=== PATIENT | female | born 1950 | race Caucasian/White ===

== ENCOUNTER 2018-01-22 21:37 | Inpatient (IN) | payer MEDICAID, OTHER ==
[~2018-01-22] VITALS: Ht 162.6 cm; Wt 52.7 kg
[2018-01-22 21:56] LABS: BASO % 0 % (0-3); EOS # 0.4 x10^3/uL (0.0-0.7); EOS % 4 % (0-3); HEMATOCRIT 32.1 % (36.0-47.0); HEMOGLOBIN 10.9 g/dL (12.0-15.5); LYMPH # 1.2 x10^3/uL (1.0-4.8); LYMPH % 14 % (24-48); MEAN CORPUSCULAR HEMOGLOBIN 28 pg (25-35); MEAN CORPUSCULAR HGB CONC 34 g/dL (31-37); MEAN CORPUSCULAR VOLUME 84 fL (79-100); MONO # 0.5 x10^3/uL (0.0-1.1); MONO % 6 % (0-9); NEUT # 6.6 x10^3uL (1.8-7.7); NEUT % 75 % (31-73); PLATELET COUNT 294 x10^3/uL (140-400); RED BLOOD COUNT 3.84 x10^6/uL (3.50-5.40); RED CELL DISTRIBUTION WIDTH 15.3 % (11.5-14.5); WHITE BLOOD COUNT 8.8 x10^3/uL (4.0-11.0)
--- NOTE | 2018-01-22 21:57 | PHYS DOC ---
Adult General Chief Complaint Chief Complaint: MECHANICAL FALL HPI HPI Patient is a 67 year old female with a history of hypertension, anxiety, who presents from the local halfway, per report patient has right hip fracture. Patient fell yesterday and they did x-rays today which were positive for fracture. Patient states she is wheelchair-bound. Patient denies any loss of consciousness when she fell. Review of Systems Review of Systems Constitutional: Denies fever or chills [] Eyes: Denies change in visual acuity, redness, or eye pain [] HENT: Denies nasal congestion or sore throat [] Respiratory: Denies cough or shortness of breath [] Cardiovascular: No additional information not addressed in HPI [] GI: Denies abdominal pain, nausea, vomiting, bloody stools or diarrhea [] : Denies dysuria or hematuria [] Musculoskeletal: Reports right hip fracture Integument: Denies rash or skin lesions [] Neurologic: Denies headache, focal weakness or sensory changes [] All other systems were reviewed and found to be within normal limits, except as documented in this note. Current Medications Current Medications Allergies Allergies Allergies Coded Allergies Type Severity Reaction Last Updated Verified No Known Drug Allergies 01/22/18 No Physical Exam Physical Exam Constitutional: Well developed, well nourished, no acute distress, non-toxic appearance. [] HENT: Normocephalic, atraumatic, bilateral external ears normal, oropharynx moist, no oral exudates, nose normal. [] Eyes: PERRLA, EOMI, conjunctiva normal, no discharge. [] Neck: Normal range of motion, no tenderness, supple, no stridor. [] Cardiovascular:Heart rate regular rhythm, no murmur [] Lungs & Thorax: Bilateral breath sounds clear to auscultation [] Abdomen: Bowel sounds normal, soft, no tenderness, no masses, no pulsatile masses. [] Skin: Warm, dry, no erythema, no rash. [] Back: No tenderness, no CVA tenderness. [] Extremities: Slight tenderness on palpation of the right lateral hip, limited passive range of motion to the right hip, pain elicited on external and internal rotation of the right hip, no cyanosis, no clubbing, ROM intact, +2 bilateral pedal pulses. Neurologic: Alert and oriented X 3, normal motor function, normal sensory function, no focal deficits noted. [] Psychologic: Affect normal, judgement normal, mood normal. [] Current Patient Data Vital Signs Vital Signs Date Time Temp Pulse Resp B/P (MAP) Pulse Ox O2 Delivery O2 Flow Rate FiO2 01/22/18 21:37 98.2 57 18 164/77 (106) 95 Room Air 98.2 Lab Values Laboratory Tests Test 01/22/18 21:43 White Blood Count 8.8 x10^3/uL (4.0-11.0) Red Blood Count 3.84 x10^6/uL (3.50-5.40) Hemoglobin 10.9 g/dL (12.0-15.5) L Hematocrit 32.1 % (36.0-47.0) L Mean Corpuscular Volume 84 fL (79-100) Mean Corpuscular Hemoglobin 28 pg (25-35) Mean Corpuscular Hemoglobin Concent 34 g/dL (31-37) Red Cell Distribution Width 15.3 % (11.5-14.5) H Platelet Count 294 x10^3/uL (140-400) Neutrophils (%) (Auto) 75 % (31-73) H Lymphocytes (%) (Auto) 14 % (24-48) L Monocytes (%) (Auto) 6 % (0-9) Eosinophils (%) (Auto) 4 % (0-3) H Basophils (%) (Auto) 0 % (0-3) Neutrophils # (Auto) 6.6 x10^3uL (1.8-7.7) Lymphocytes # (Auto) 1.2 x10^3/uL (1.0-4.8) Monocytes # (Auto) 0.5 x10^3/uL (0.0-1.1) Eosinophils # (Auto) 0.4 x10^3/uL (0.0-0.7) Basophils # (Auto) 0.0 x10^3/uL (0.0-0.2) Prothrombin Time 14.5 SEC (11.7-14.0) H Prothrombin Time INR 1.2 (0.8-1.1) H PTT 37 SEC (24-38) Sodium Level 137 mmol/L (136-145) Potassium Level 3.1 mmol/L (3.5-5.1) L Chloride Level 102 mmol/L (98-107) Carbon Dioxide Level 26 mmol/L (21-32) Anion Gap 9 (6-14) Blood Urea Nitrogen 12 mg/dL (7-20) Creatinine 0.8 mg/dL (0.6-1.0) Estimated GFR (Cockcroft-Gault) 71.8 BUN/Creatinine Ratio 15 (6-20) Glucose Level 120 mg/dL (70-99) H Calcium Level 9.0 mg/dL (8.5-10.1) Total Bilirubin 0.9 mg/dL (0.2-1.0) Aspartate Amino Transferase (AST) 13 U/L (15-37) L Alanine Aminotransferase (ALT) 16 U/L (14-59) Alkaline Phosphatase 83 U/L (46-116) Total Protein 7.2 g/dL (6.4-8.2) Albumin 3.4 g/dL (3.4-5.0) Albumin/Globulin Ratio 0.9 (1.0-1.7) L Laboratory Tests 01/22/18 21:43 Laboratory Tests 01/22/18 21:43 EKG EKG [] Radiology/Procedures Radiology/Procedures [] Course & Med Decision Making Course & Med Decision Making Pertinent Labs and Imaging studies reviewed. (See chart for details) This is a 67-year-old female patient presenting from the halfway, per halfway report patient fell and has a broken hip. Looking at the x-ray results that patient came with it shows patient has an acute appearing mildly displaced right anterior pelvic parasymphyseal fracture. 22:18 Consulted with Elenita PRADHAN for Dr. Marianela Beyer 22:[address] Aguilera who accepted patient for admission. Dragon Disclaimer Dragon Disclaimer This electronic medical record was generated, in whole or in part, using a voice recognition dictation system. Departure Departure Impression: Primary Impression: Pelvis fracture, right Additional Impression: Fall Disposition: ADMITTED INPATIENT Condition: STABLE Attending Signature Attending Signature I have reviewed the PA/DELINQUENT ACCOUNT CLERK's note and plan of care. I was available for consultation as needed during the patient's visit in the emergency department. I agree with the clinical impression, plan, and disposition. Problem Qualifiers Primary Impression: Pelvis fracture, right Encounter type: initial encounter Pelvic bone location: pubis Sublocation of pubis: unspecified portion of pubis Fracture type: closed Qualified Codes : S32.501A - Unspecified fracture of right pubis, initial encounter for closed fracture Additional Impression: Fall Encounter type: initial encounter Qualified Codes: W19.XXXA - Unspecified fall, initial encounter BORIS CARMONA APRN Jan 22, 2018 21:57 FRIDA CASPER DO Jan 24, 2018 03:24
[2018-01-22 22:03] LABS: PROTHROMBIN TIME PATIENT 14.5 SEC (11.7-14.0)
[2018-01-22 22:05] LABS: CREATININE 0.8 mg/dL (0.6-1.0); GFR 71.8; POTASSIUM 3.1 mmol/L (3.5-5.1)
[2018-01-22 22:11] LABS: ALBUMIN 3.4 g/dL (3.4-5.0); ALBUMIN/GLOBULIN RATIO 0.9 (1.0-1.7); TOTAL BILIRUBIN 0.9 mg/dL (0.2-1.0); TOTAL PROTEIN 7.2 g/dL (6.4-8.2)
[2018-01-22] MEDS ORDERED: ONDANSETRON PF 4 MG/2 ML VIAL. IV PRN (22:30)
--- NOTE | 2018-01-22 22:37 | RAD ---
Indication:pre op, short of breath TECHNIQUE:Portable AP chest X-ray COMPARISON:None FINDINGS: Heart is moderately enlarged in size. Lungs are clear. No pneumothorax or pleural effusion. Visualized bony thorax within normal limits. IMPRESSION: Moderate cardiomegaly. Electronically signed by: Nguyễn Munoz DO (01/22/2018 10:34 PM) [facility]
--- NOTE | 2018-01-22 22:40 | RAD ---
Indication: Mechanical fall and pelvis TECHNIQUE: Single AP view of the pelvis and frog-leg view of the right hip joint COMPARISON: None FINDINGS: There is mildly displaced fracture of the medial right superior and inferior pubic rami seen. The bilateral hip joints are intact. SI joints within normal limits. IMPRESSION: Fracture of the right superior and inferior pubic rami. Electronically signed by: Nguyễn Munoz DO (01/22/2018 10:37 PM) [facility]
[2018-01-22 22:56] LABS: BILIRUBIN,URINE NEGATIVE (NEG); CLARITY,URINE CLEAR; COLOR,URINE YELLOW; NITRITE,URINE POSITIVE (NEG); PROTEIN,URINE NEGATIVE (NEG-TRACE); UROBILINOGEN,URINE 0.2 mg/dL (0.2 mg/dL)
[2018-01-22] MEDS: MORPHINE SULFATE 4 MG/ML VIAL. IV PRN (22:57)
[2018-01-22] MEDS ORDERED: POTASSIUM CHLORIDE 20 MEQ TABLET.ER. PO ONE (23:00)
[2018-01-22] MEDS ORDERED: IV NORMAL SALINE 1000ML BAG 1,000 ML IV ONE (23:00)
[2018-01-22 23:05] LABS: BACTERIA,URINE MANY /HPF (0-FEW); RBC,URINE 0 /HPF (0-2); SQUAMOUS EPITHELIAL CELL,UR FEW /LPF
[2018-01-22 23:10] VITALS: BP 143/74
[2018-01-23] MEDS: MORPHINE SULFATE 4 MG/ML VIAL. IV PRN ×3 (01:13→17:36)
[2018-01-23 03:36] VITALS: BP 138/72
[2018-01-23 05:38] LABS: BASO % 1 % (0-3); EOS # 0.3 x10^3/uL (0.0-0.7); EOS % 5 % (0-3); HEMATOCRIT 28.6 % (36.0-47.0); HEMOGLOBIN 9.6 g/dL (12.0-15.5); LYMPH # 1.3 x10^3/uL (1.0-4.8); LYMPH % 19 % (24-48); MEAN CORPUSCULAR HEMOGLOBIN 28 pg (25-35); MEAN CORPUSCULAR HGB CONC 34 g/dL (31-37); MEAN CORPUSCULAR VOLUME 84 fL (79-100); MONO # 0.4 x10^3/uL (0.0-1.1); MONO % 6 % (0-9); NEUT # 4.5 x10^3uL (1.8-7.7); NEUT % 69 % (31-73); PLATELET COUNT 229 x10^3/uL (140-400); RED BLOOD COUNT 3.41 x10^6/uL (3.50-5.40); RED CELL DISTRIBUTION WIDTH 15.7 % (11.5-14.5); WHITE BLOOD COUNT 6.5 x10^3/uL (4.0-11.0)
[2018-01-23 05:50] LABS: CALCIUM 8.6 mg/dL (8.5-10.1); CREATININE 0.8 mg/dL (0.6-1.0); GFR 71.8; POTASSIUM 3.5 mmol/L (3.5-5.1)
[2018-01-23 07:00] VITALS: BP 129/60
[2018-01-23 11:00] VITALS: BP 123/72
--- NOTE | 2018-01-23 12:16 | HP ---
ADMIT DATE: CHIEF COMPLAINT: Mechanical fall. HISTORY OF PRESENT ILLNESS: The patient is a pleasant 67-year-old female who fell. She resides in a snf. She was brought to the ER for intractable pain. X-rays are confirming a right pelvic fracture. I have discussed the case with the ER physician. The patient has intractable pain. We are going to admit her and consult Orthopedics. PAST MEDICAL HISTORY: I guess is benign. ALLERGIES: None. FAMILY HISTORY: Hypertension. SOCIAL HISTORY: She does not drink, smoke or take drugs. MEDICATIONS: Reviewed, please refer to the MRAD. REVIEW OF SYSTEMS: GENERAL: No history of weight change, weakness or fevers. SKIN: No bruising, hair changes or rashes. EYES: No blurred, double or loss of vision. NOSE AND THROAT: No history of nosebleeds, hoarseness or sore throat. HEART: No history of palpitations, chest pain or shortness of breath on exertion. LUNGS: Denies cough, hemoptysis, wheezing or shortness of breath. GASTROINTESTINAL: Denies changes in appetite, nausea, vomiting, diarrhea or constipation. GENITOURINARY: No history of frequency, urgency, hesitancy or nocturia. NEUROLOGIC: Denies history of numbness, tingling, tremor or weakness. PSYCHIATRIC: No history of panic, anxiety or depression. ENDOCRINE: No history of heat or cold intolerance, polyuria or polydipsia. EXTREMITIES: She complains of hip pain. PHYSICAL EXAMINATION: VITAL SIGNS: Temperature afebrile, pulse 92, respirations 18, blood pressure /72. GENERAL: She is alert, cooperative, complaining of right hip pain and pelvic pain. HEART: Normal S1, S2. LUNGS: Clear. ABDOMEN: Soft. EXTREMITIES: No edema. SKIN: No rashes. ENDOCRINE: No thyromegaly. LYMPHATICS: No cervical nodes. HEMATOPOIETIC: No bruising. LABORATORY DATA: White count 8, hemoglobin 11, platelets 294. Electrolytes are normal, although her potassium was low last night at 3.1, is back up to 3.5 this morning after replacement. Urine shows a large amount of leukocyte esterase and 11-20 white cells. ASSESSMENT AND PLAN: Fall with pelvic fracture and incidental finding of hypokalemia and urinary tract infection. The patient has been admitted. We will start IV Levaquin, IV fluids, p.r.n. narcotics. Consult Orthopedics. Continue home medicines, PT, OT. NEEMA RDORIGES DO DR: VITOR/danna JOB#: [id number] / [id number]
--- NOTE | 2018-01-23 12:44 | PDOC2 ---
CONSULT Date of Consult Date of Consult DATE: 01/23/18 TIME: 12:36 Reason for Consult Reason for Consult: Pelvic fracture Identification/Chief Complaint Chief Complaint Right hip pain, difficulty walking Source Source: Chart review, Patient History of Present Illness Reason for Visit: This 67-year-old woman fell in the shower. She has right hip pain and inability to walk. She reports weakness recently, and difficulty with her muscles. She was at a rehabilitation facility trying to get stronger. She reports that her nerves and muscles "gave out" 1 month ago. Past Medical History Cardiovascular: HTN, Other (cardiomegaly) Current Problem List Problem List Problems Medical Problems: (1) Fall Status: Acute (2) Pelvis fracture, right Status: Acute Current Medications Current Medications Current Medications Ondansetron HCl (Zofran) 4 mg PRN Q8HRS PRN IV NAUSEA/VOMITING 1ST CHOICE Last administered on 01/22/18at 22:57; Start 01/22/18 at 22:30; Stop 01/23/18 at 22:29 Morphine Sulfate (Morphine Sulfate) 4 mg PRN Q2HR PRN IV SEVERE PAIN Last administered on 01/23/18at 10:41; Start 01/22/18 at 22:30; Stop 01/23/18 at 22:29 Sodium Chloride 1,000 ml @ 75 mls/hr 1X ONCE IV Last administered on at 22:56; Start 01/22/18 at 23:00; Stop 01/23/18 at 12:19; Status DC Potassium Chloride (Klor-Con) 40 meq 1X ONCE PO Last administered on at 22:57; Start 01/22/18 at 23:00; Stop 01/22/18 at 23:01; Status DC Allergies Allergies: Coded Allergies: No Known Drug Allergies (Unverified , 01/22/18) ROS Neurological: Yes Impaired Coord/balance, Yes Numbness/Tingling, Yes Weakness Physical Exam General: Alert, Cooperative HEENT: Atraumatic Lungs: Normal air movement Heart: Regular rate Abdomen: Soft Extremities: Other (she has a flicker of toe plantar flexion. Absent dorsiflexion. I believe the Achilles is now contracted. Sensation is very poor and the right lower extremity. This is well beyond what could be explained by her fracture.) Skin: No significant lesion Neuro: Normal speech, Other (abnormal sensation and motor function right lower extremity.) MUSCULOSKELETAL: Abnormal exam of right (she has some tenderness in the right groin area consistent with pubic rami fractures.) Vitals VITALS Vital Signs Date Time Temp Pulse Resp B/P (MAP) Pulse Ox O2 Delivery O2 Flow Rate FiO2 01/23/18 11:00 97.9 67 18 123/72 (89) 93 Room Air 97.9 Labs Labs Laboratory Tests Test 01/22/18 21:43 01/22/18 22:45 01/23/18 04:10 White Blood Count 8.8 x10^3/uL (4.0-11.0) 6.5 x10^3/uL (4.0-11.0) Red Blood Count 3.84 x10^6/uL (3.50-5.40) 3.41 x10^6/uL (3.50-5.40) Hemoglobin 10.9 g/dL (12.0-15.5) 9.6 g/dL (12.0-15.5) Hematocrit 32.1 % (36.0-47.0) 28.6 % (36.0-47.0) Mean Corpuscular Volume 84 fL (79-100) 84 fL (79-100) Mean Corpuscular Hemoglobin 28 pg (25-35) 28 pg (25-35) Mean Corpuscular Hemoglobin Concent 34 g/dL (31-37) 34 g/dL (31-37) Red Cell Distribution Width 15.3 % (11.5-14.5) 15.7 % (11.5-14.5) Platelet Count 294 x10^3/uL (140-400) 229 x10^3/uL (140-400) Neutrophils (%) (Auto) 75 % (31-73) 69 % (31-73) Lymphocytes (%) (Auto) 14 % (24-48) 19 % (24-48) Monocytes (%) (Auto) 6 % (0-9) 6 % (0-9) Eosinophils (%) (Auto) 4 % (0-3) 5 % (0-3) Basophils (%) (Auto) 0 % (0-3) 1 % (0-3) Neutrophils # (Auto) 6.6 x10^3uL (1.8-7.7) 4.5 x10^3uL (1.8-7.7) Lymphocytes # (Auto) 1.2 x10^3/uL (1.0-4.8) 1.3 x10^3/uL (1.0-4.8) Monocytes # (Auto) 0.5 x10^3/uL (0.0-1.1) 0.4 x10^3/uL (0.0-1.1) Eosinophils # (Auto) 0.4 x10^3/uL (0.0-0.7) 0.3 x10^3/uL (0.0-0.7) Basophils # (Auto) 0.0 x10^3/uL (0.0-0.2) 0.0 x10^3/uL (0.0-0.2) Prothrombin Time 14.5 SEC (11.7-14.0) Prothromb Time International Ratio 1.2 (0.8-1.1) Activated Partial Thromboplast Time 37 SEC (24-38) Sodium Level 137 mmol/L (136-145) 140 mmol/L (136-145) Potassium Level 3.1 mmol/L (3.5-5.1) 3.5 mmol/L (3.5-5.1) Chloride Level 102 mmol/L (98-107) 106 mmol/L (98-107) Carbon Dioxide Level 26 mmol/L (21-32) 26 mmol/L (21-32) Anion Gap 9 (6-14) 8 (6-14) Blood Urea Nitrogen 12 mg/dL (7-20) 10 mg/dL (7-20) Creatinine 0.8 mg/dL (0.6-1.0) 0.8 mg/dL (0.6-1.0) Estimated GFR (Cockcroft-Gault) 71.8 71.8 BUN/Creatinine Ratio 15 (6-20) Glucose Level 120 mg/dL (70-99) 101 mg/dL (70-99) Calcium Level 9.0 mg/dL (8.5-10.1) 8.6 mg/dL (8.5-10.1) Total Bilirubin 0.9 mg/dL (0.2-1.0) Aspartate Amino Transf (AST/SGOT) 13 U/L (15-37) Alanine Aminotransferase (ALT/SGPT) 16 U/L (14-59) Alkaline Phosphatase 83 U/L (46-116) Total Protein 7.2 g/dL (6.4-8.2) Albumin 3.4 g/dL (3.4-5.0) Albumin/Globulin Ratio 0.9 (1.0-1.7) Urine Collection Type Unknown Urine Color Yellow Urine Clarity Clear Urine pH 6.0 Urine Specific [place] 1.010 Urine Protein Negative mg/dL (NEG-TRACE) Urine Glucose (UA) Negative mg/dL (NEG) Urine Ketones (Stick) Negative mg/dL (NEG) Urine Blood Negative (NEG) Urine Nitrite Positive (NEG) Urine Bilirubin Negative (NEG) Urine Urobilinogen Dipstick 0.2 mg/dL (0.2 mg/dL) Urine Leukocyte Esterase Large (NEG) Urine RBC 0 /HPF (0-2) Urine WBC 11-20 /HPF (0-4) Urine Squamous Epithelial Cells Few /LPF Urine Bacteria Many /HPF (0-FEW) Urine Mucus Slight /LPF Laboratory Tests Test 01/22/18 21:43 01/22/18 22:45 01/23/18 04:10 White Blood Count 8.8 x10^3/uL (4.0-11.0) 6.5 x10^3/uL (4.0-11.0) Red Blood Count 3.84 x10^6/uL (3.50-5.40) 3.41 x10^6/uL (3.50-5.40) Hemoglobin 10.9 g/dL (12.0-15.5) 9.6 g/dL (12.0-15.5) Hematocrit 32.1 % (36.0-47.0) 28.6 % (36.0-47.0) Mean Corpuscular Volume 84 fL (79-100) 84 fL (79-100) Mean Corpuscular Hemoglobin 28 pg (25-35) 28 pg (25-35) Mean Corpuscular Hemoglobin Concent 34 g/dL (31-37) 34 g/dL (31-37) Red Cell Distribution Width 15.3 % (11.5-14.5) 15.7 % (11.5-14.5) Platelet Count 294 x10^3/uL (140-400) 229 x10^3/uL (140-400) Neutrophils (%) (Auto) 75 % (31-73) 69 % (31-73) Lymphocytes (%) (Auto) 14 % (24-48) 19 % (24-48) Monocytes (%) (Auto) 6 % (0-9) 6 % (0-9) Eosinophils (%) (Auto) 4 % (0-3) 5 % (0-3) Basophils (%) (Auto) 0 % (0-3) 1 % (0-3) Neutrophils # (Auto) 6.6 x10^3uL (1.8-7.7) 4.5 x10^3uL (1.8-7.7) Lymphocytes # (Auto) 1.2 x10^3/uL (1.0-4.8) 1.3 x10^3/uL (1.0-4.8) Monocytes # (Auto) 0.5 x10^3/uL (0.0-1.1) 0.4 x10^3/uL (0.0-1.1) Eosinophils # (Auto) 0.4 x10^3/uL (0.0-0.7) 0.3 x10^3/uL (0.0-0.7) Basophils # (Auto) 0.0 x10^3/uL (0.0-0.2) 0.0 x10^3/uL (0.0-0.2) Prothrombin Time 14.5 SEC (11.7-14.0) Prothromb Time International Ratio 1.2 (0.8-1.1) Activated Partial Thromboplast Time 37 SEC (24-38) Sodium Level 137 mmol/L (136-145) 140 mmol/L (136-145) Potassium Level 3.1 mmol/L (3.5-5.1) 3.5 mmol/L (3.5-5.1) Chloride Level 102 mmol/L (98-107) 106 mmol/L (98-107) Carbon Dioxide Level 26 mmol/L (21-32) 26 mmol/L (21-32) Anion Gap 9 (6-14) 8 (6-14) Blood Urea Nitrogen 12 mg/dL (7-20) 10 mg/dL (7-20) Creatinine 0.8 mg/dL (0.6-1.0) 0.8 mg/dL (0.6-1.0) Estimated GFR (Cockcroft-Gault) 71.8 71.8 BUN/Creatinine Ratio 15 (6-20) Glucose Level 120 mg/dL (70-99) 101 mg/dL (70-99) Calcium Level 9.0 mg/dL (8.5-10.1) 8.6 mg/dL (8.5-10.1) Total Bilirubin 0.9 mg/dL (0.2-1.0) Aspartate Amino Transf (AST/SGOT) 13 U/L (15-37) Alanine Aminotransferase (ALT/SGPT) 16 U/L (14-59) Alkaline Phosphatase 83 U/L (46-116) Total Protein 7.2 g/dL (6.4-8.2) Albumin 3.4 g/dL (3.4-5.0) Albumin/Globulin Ratio 0.9 (1.0-1.7) Urine Collection Type Unknown Urine Color Yellow Urine Clarity Clear Urine pH 6.0 Urine Specific [place] 1.010 Urine Protein Negative mg/dL (NEG-TRACE) Urine Glucose (UA) Negative mg/dL (NEG) Urine Ketones (Stick) Negative mg/dL (NEG) Urine Blood Negative (NEG) Urine Nitrite Positive (NEG) Urine Bilirubin Negative (NEG) Urine Urobilinogen Dipstick 0.2 mg/dL (0.2 mg/dL) Urine Leukocyte Esterase Large (NEG) Urine RBC 0 /HPF (0-2) Urine WBC 11-20 /HPF (0-4) Urine Squamous Epithelial Cells Few /LPF Urine Bacteria Many /HPF (0-FEW) Urine Mucus Slight /LPF Images Images Report reviewed, images independently reviewed. Minimally displaced pubic ramus fractures on the right superior and inferior pubic ramus. Cardiomegaly on the chest film. Accession No. : [id number] Patient Name / ID : SANDIE Miller / [id number] Exam Date : 01/22/2018 22:02:44 ( Approved ) Study Comment : Sex / Age : F / 67Y Creator : Dictator : Field Care Coordinator : Saddle And Side Wire Stitcher : NGUYỄN MUNOZ Approver2 : Report Date : 01/22/2018 22:35:00 My Comment : [facility] [address] [place] [address] IMAGING REPORT Signed PATIENT: NATTY HOOPER ACCOUNT: [id number] : 1950 LOCATION: ER AGE: 67 SEX: F EXAM STATUS: REG ER ORD. PHYSICIAN: BORIS CARMONA APRN REASON: fx PROCEDURE: HIP RIGHT 2V WITH PELVIS Indication: Mechanical fall and pelvis TECHNIQUE: Single AP view of the pelvis and frog-leg view of the right hip joint COMPARISON: None FINDINGS: There is mildly displaced fracture of the medial right superior and inferior pubic rami seen. The bilateral hip joints are intact. SI joints within normal limits. IMPRESSION: Fracture of the right superior and inferior pubic rami. Electronically signed by: Nguyễn Munoz DO (01/22/2018 10:37 PM) [facility] DICTATED and SIGNED BY: NGUYỄN MUNOZ DO DATE: 01/22/18 2235 Assessment/Plan Assessment/Plan Closed right superior and inferior pubic ramus fractures. These are minimally displaced and walker for treatment is recommended. She could weight-bear as tolerated based on the fractures. She has a dense weakness in the right lower extremity that is beyond what I can explain by her fractures. I'm suspicious that she has had a stroke, or has some other neurologic pathology. I will ask neurology to be involved. JOSE ANTONIO PASTRANA MD Jan 23, 2018 12:44
[2018-01-23 15:00] VITALS: BP 132/70
[2018-01-23 19:00] VITALS: BP 158/80
[2018-01-23] MEDS: CIPROFLOXACIN HCL 250 MG TABLET. PO SCH (21:29)
[2018-01-23] MEDS: LACTOBACILLUS RHAMNOSUS GG 1 CAPSULE. PO SCH (21:29)
[2018-01-23 23:00] VITALS: BP 162/82
[2018-01-24 03:00] VITALS: BP 177/80
[2018-01-24 07:00] VITALS: BP 179/80
[2018-01-24] MEDS: LACTOBACILLUS RHAMNOSUS GG 1 CAPSULE. PO SCH ×2 (08:11→21:11)
[2018-01-24] MEDS: CIPROFLOXACIN HCL 250 MG TABLET. PO SCH ×2 (08:11→21:11)
[2018-01-24] MEDS: HYDROcodone/APAP 5/325MG 1 TAB TABLET PO PRN ×3 (08:24→21:12)
[2018-01-24 11:00] VITALS: BP 169/78
--- NOTE | 2018-01-24 14:48 | PDOC ---
PROGRESS NOTES Chief Complaint Chief Complaint Fall w/pelvic fx UTI Hypokalemia History of Present Illness History of Present Illness Pt seen and examined Dw RN VSS Pt CO R pelvic pain Vitals Vitals Vital Signs Date Time Temp Pulse Resp B/P (MAP) Pulse Ox O2 Delivery O2 Flow Rate FiO2 01/24/18 11:00 98.1 63 20 169/78 (108) 97 Room Air 98.1 Physical Exam General: Alert, Cooperative, No acute distress Heart: Regular rate, No murmurs Lungs: Clear Abdomen: Normal bowel sounds, Soft Extremities: No clubbing, No cyanosis, Other (Tenderness over R pelvis) Skin: No rashes, No significant lesion Review of Systems Review of Systems CO pain CO fatigue Assessment and Plan Assessmemt and Plan Problems Medical Problems: (1) Fall Status: Acute (2) Pelvis fracture, right Status: Acute Fall w/pelvic fx UTI Hypokalemia Plan: PRN narcotics PT/OT Labs Home meds Probable D/C to [facility] Appreciate subspecialist input Comment Review of Relevant I have reviewed the following items sourav (where applicable) has been applied. Labs Laboratory Tests Test 01/22/18 21:43 01/22/18 22:45 01/23/18 01:00 01/23/18 04:10 White Blood Count 8.8 x10^3/uL (4.0-11.0) 6.5 x10^3/uL (4.0-11.0) Red Blood Count 3.84 x10^6/uL (3.50-5.40) 3.41 x10^6/uL (3.50-5.40) Hemoglobin 10.9 g/dL (12.0-15.5) 9.6 g/dL (12.0-15.5) Hematocrit 32.1 % (36.0-47.0) 28.6 % (36.0-47.0) Mean Corpuscular Volume 84 fL (79-100) 84 fL (79-100) Mean Corpuscular Hemoglobin 28 pg (25-35) 28 pg (25-35) Mean Corpuscular Hemoglobin Concent 34 g/dL (31-37) 34 g/dL (31-37) Red Cell Distribution Width 15.3 % (11.5-14.5) 15.7 % (11.5-14.5) Platelet Count 294 x10^3/uL (140-400) 229 x10^3/uL (140-400) Neutrophils (%) (Auto) 75 % (31-73) 69 % (31-73) Lymphocytes (%) (Auto) 14 % (24-48) 19 % (24-48) Monocytes (%) (Auto) 6 % (0-9) 6 % (0-9) Eosinophils (%) (Auto) 4 % (0-3) 5 % (0-3) Basophils (%) (Auto) 0 % (0-3) 1 % (0-3) Neutrophils # (Auto) 6.6 x10^3uL (1.8-7.7) 4.5 x10^3uL (1.8-7.7) Lymphocytes # (Auto) 1.2 x10^3/uL (1.0-4.8) 1.3 x10^3/uL (1.0-4.8) Monocytes # (Auto) 0.5 x10^3/uL (0.0-1.1) 0.4 x10^3/uL (0.0-1.1) Eosinophils # (Auto) 0.4 x10^3/uL (0.0-0.7) 0.3 x10^3/uL (0.0-0.7) Basophils # (Auto) 0.0 x10^3/uL (0.0-0.2) 0.0 x10^3/uL (0.0-0.2) Prothrombin Time 14.5 SEC (11.7-14.0) Prothromb Time International Ratio 1.2 (0.8-1.1) Activated Partial Thromboplast Time 37 SEC (24-38) Sodium Level 137 mmol/L (136-145) 140 mmol/L (136-145) Potassium Level 3.1 mmol/L (3.5-5.1) 3.5 mmol/L (3.5-5.1) Chloride Level 102 mmol/L (98-107) 106 mmol/L (98-107) Carbon Dioxide Level 26 mmol/L (21-32) 26 mmol/L (21-32) Anion Gap 9 (6-14) 8 (6-14) Blood Urea Nitrogen 12 mg/dL (7-20) 10 mg/dL (7-20) Creatinine 0.8 mg/dL (0.6-1.0) 0.8 mg/dL (0.6-1.0) Estimated GFR (Cockcroft-Gault) 71.8 71.8 BUN/Creatinine Ratio 15 (6-20) Glucose Level 120 mg/dL (70-99) 101 mg/dL (70-99) Calcium Level 9.0 mg/dL (8.5-10.1) 8.6 mg/dL (8.5-10.1) Total Bilirubin 0.9 mg/dL (0.2-1.0) Aspartate Amino Transf (AST/SGOT) 13 U/L (15-37) Alanine Aminotransferase (ALT/SGPT) 16 U/L (14-59) Alkaline Phosphatase 83 U/L (46-116) Total Protein 7.2 g/dL (6.4-8.2) Albumin 3.4 g/dL (3.4-5.0) Albumin/Globulin Ratio 0.9 (1.0-1.7) Urine Collection Type Unknown Urine Color Yellow Urine Clarity Clear Urine pH 6.0 Urine Specific [place] 1.010 Urine Protein Negative mg/dL (NEG-TRACE) Urine Glucose (UA) Negative mg/dL (NEG) Urine Ketones (Stick) Negative mg/dL (NEG) Urine Blood Negative (NEG) Urine Nitrite Positive (NEG) Urine Bilirubin Negative (NEG) Urine Urobilinogen Dipstick 0.2 mg/dL (0.2 mg/dL) Urine Leukocyte Esterase Large (NEG) Urine RBC 0 /HPF (0-2) Urine WBC 11-20 /HPF (0-4) Urine Squamous Epithelial Cells Few /LPF Urine Bacteria Many /HPF (0-FEW) Urine Mucus Slight /LPF Nasal Screen MRSA (PCR) Negative (Negative) Medications Current Medications Ondansetron HCl (Zofran) 4 mg PRN Q8HRS PRN IV NAUSEA/VOMITING 1ST CHOICE Last administered on 01/22/18at 22:57; Start 01/22/18 at 22:30; Stop 01/23/18 at 22:29 ; Status DC Morphine Sulfate (Morphine Sulfate) 4 mg PRN Q2HR PRN IV SEVERE PAIN Last administered on 01/23/18at 17:36; Start 01/22/18 at 22:30; Stop 01/23/18 at 22:29; Status DC Sodium Chloride 1,000 ml @ 75 mls/hr 1X ONCE IV Last administered on at 22:56; Start 01/22/18 at 23:00; Stop 01/23/18 at 12:19; Status DC Potassium Chloride (Klor-Con) 40 meq 1X ONCE PO Last administered on at 22:57; Start 01/22/18 at 23:00; Stop 01/22/18 at 23:01; Status DC Ciprofloxacin (Cipro) 500 mg BID PO Last administered on 01/24/18at 08:11; Start 01/23/18 at 21:00 Lactobacillus Rhamnosus (Culturelle) 1 cap BID PO Last administered on at 08:11; Start 01/23/18 at 21:00 Acetaminophen/ Hydrocodone Bitart (Lortab 5/325) 1 tab PRN Q4HRS PRN PO PAIN Last administered on 01/24/18at 08:24; Start 01/24/18 at 08:15 Vitals/I & O Vital Sign - Last 24 Hours 01/23/18 01/23/18 01/23/18 01/23/18 15:00 17:36 18:06 19:00 Temp 98.2 98.4 98.2 98.4 Pulse 74 72 Resp 16 20 16 16 B/P (MAP) 132/70 (90) 158/80 (106) Pulse Ox 93 93 O2 Delivery Room Air Room Air Room Air Room Air 01/23/18 01/23/18 01/24/18 01/24/18 20:00 23:00 03:00 07:00 Temp 98.3 97.6 98.3 98.3 97.6 98.3 Pulse 80 74 71 Resp 16 18 18 B/P (MAP) 162/82 (108) 177/80 (112) 179/80 (113) Pulse Ox 90 89 92 O2 Delivery Room Air Room Air Room Air Room Air 01/24/18 01/24/18 01/24/18 08:24 09:24 11:00 Temp 98.1 98.1 Pulse 63 Resp 20 B/P (MAP) 169/78 (108) Pulse Ox 97 O2 Delivery Room Air Room Air Room Air Intake and Output 01/23/18 01/23/18 01/24/18 15:00 23:00 07:00 Intake Total 240 ml 620 ml Output Total 250 ml 250 ml 1350 ml Balance -10 ml 370 ml -1350 ml NEEMA RODRIGES III DO Jan 24, 2018 14:48
[2018-01-24 15:00] VITALS: BP 164/79
--- NOTE | 2018-01-24 15:55 | PDOC2 ---
NEUROLOGY CONSULT Date of Admission Date of Admission DATE: 01/24/18 TIME: 15:54 Full Report Dictated Patient is a 67-year-old woman who fell in the shower fracturing her right pubic ramus. Patient is an extremely poor historian. I spent 20 minutes talking to her cousin who is her DURABLE POWER OF ACCOUNT ASSOCIATE. History is quite extensive. She developed difficulty in July with anxiety and depression. She worked extensively with [facility] and was admitted on a few occasions because of suicidality. 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 She was hospitalized at this facility for some time. Do not have any records to know the investigation that was performed. She' s also been hospitalized at [facility] and [facility]. I've asked the nurse to request records from these facilities. It impossible to know the investigation that was performed and thus guide our investigation to not repeat tests unnecessarily. Current Medications Current Medications Current Medications Ondansetron HCl (Zofran) 4 mg PRN Q8HRS PRN IV NAUSEA/VOMITING 1ST CHOICE Last administered on 01/22/18at 22:57; Start 01/22/18 at 22:30; Stop 01/23/18 at 22:29 ; Status DC Morphine Sulfate (Morphine Sulfate) 4 mg PRN Q2HR PRN IV SEVERE PAIN Last administered on 01/23/18at 17:36; Start 01/22/18 at 22:30; Stop 01/23/18 at 22:29; Status DC Sodium Chloride 1,000 ml @ 75 mls/hr 1X ONCE IV Last administered on at 22:56; Start 01/22/18 at 23:00; Stop 01/23/18 at 12:19; Status DC Potassium Chloride (Klor-Con) 40 meq 1X ONCE PO Last administered on at 22:57; Start 01/22/18 at 23:00; Stop 01/22/18 at 23:01; Status DC Ciprofloxacin (Cipro) 500 mg BID PO Last administered on 01/24/18at 08:11; Start 01/23/18 at 21:00 Lactobacillus Rhamnosus (Culturelle) 1 cap BID PO Last administered on at 08:11; Start 01/23/18 at 21:00 Acetaminophen/ Hydrocodone Bitart (Lortab 5/325) 1 tab PRN Q4HRS PRN PO PAIN Last administered on 01/24/18at 08:24; Start 01/24/18 at 08:15 Allergies Allergies: Coded Allergies: No Known Drug Allergies (Unverified , 01/22/18) Vitals VITALS Vital Signs Date Time Temp Pulse Resp B/P (MAP) Pulse Ox O2 Delivery O2 Flow Rate FiO2 01/24/18 11:00 98.1 63 20 169/78 (108) 97 Room Air 98.1 Labs Labs Laboratory Tests Test 01/22/18 21:43 01/22/18 22:45 01/23/18 01:00 01/23/18 04:10 White Blood Count 8.8 x10^3/uL (4.0-11.0) 6.5 x10^3/uL (4.0-11.0) Red Blood Count 3.84 x10^6/uL (3.50-5.40) 3.41 x10^6/uL (3.50-5.40) Hemoglobin 10.9 g/dL (12.0-15.5) 9.6 g/dL (12.0-15.5) Hematocrit 32.1 % (36.0-47.0) 28.6 % (36.0-47.0) Mean Corpuscular Volume 84 fL (79-100) 84 fL (79-100) Mean Corpuscular Hemoglobin 28 pg (25-35) 28 pg (25-35) Mean Corpuscular Hemoglobin Concent 34 g/dL (31-37) 34 g/dL (31-37) Red Cell Distribution Width 15.3 % (11.5-14.5) 15.7 % (11.5-14.5) Platelet Count 294 x10^3/uL (140-400) 229 x10^3/uL (140-400) Neutrophils (%) (Auto) 75 % (31-73) 69 % (31-73) Lymphocytes (%) (Auto) 14 % (24-48) 19 % (24-48) Monocytes (%) (Auto) 6 % (0-9) 6 % (0-9) Eosinophils (%) (Auto) 4 % (0-3) 5 % (0-3) Basophils (%) (Auto) 0 % (0-3) 1 % (0-3) Neutrophils # (Auto) 6.6 x10^3uL (1.8-7.7) 4.5 x10^3uL (1.8-7.7) Lymphocytes # (Auto) 1.2 x10^3/uL (1.0-4.8) 1.3 x10^3/uL (1.0-4.8) Monocytes # (Auto) 0.5 x10^3/uL (0.0-1.1) 0.4 x10^3/uL (0.0-1.1) Eosinophils # (Auto) 0.4 x10^3/uL (0.0-0.7) 0.3 x10^3/uL (0.0-0.7) Basophils # (Auto) 0.0 x10^3/uL (0.0-0.2) 0.0 x10^3/uL (0.0-0.2) Prothrombin Time 14.5 SEC (11.7-14.0) Prothromb Time International Ratio 1.2 (0.8-1.1) Activated Partial Thromboplast Time 37 SEC (24-38) Sodium Level 137 mmol/L (136-145) 140 mmol/L (136-145) Potassium Level 3.1 mmol/L (3.5-5.1) 3.5 mmol/L (3.5-5.1) Chloride Level 102 mmol/L (98-107) 106 mmol/L (98-107) Carbon Dioxide Level 26 mmol/L (21-32) 26 mmol/L (21-32) Anion Gap 9 (6-14) 8 (6-14) Blood Urea Nitrogen 12 mg/dL (7-20) 10 mg/dL (7-20) Creatinine 0.8 mg/dL (0.6-1.0) 0.8 mg/dL (0.6-1.0) Estimated GFR (Cockcroft-Gault) 71.8 71.8 BUN/Creatinine Ratio 15 (6-20) Glucose Level 120 mg/dL (70-99) 101 mg/dL (70-99) Calcium Level 9.0 mg/dL (8.5-10.1) 8.6 mg/dL (8.5-10.1) Total Bilirubin 0.9 mg/dL (0.2-1.0) Aspartate Amino Transf (AST/SGOT) 13 U/L (15-37) Alanine Aminotransferase (ALT/SGPT) 16 U/L (14-59) Alkaline Phosphatase 83 U/L (46-116) Total Protein 7.2 g/dL (6.4-8.2) Albumin 3.4 g/dL (3.4-5.0) Albumin/Globulin Ratio 0.9 (1.0-1.7) Urine Collection Type Unknown Urine Color Yellow Urine Clarity Clear Urine pH 6.0 Urine Specific [place] 1.010 Urine Protein Negative mg/dL (NEG-TRACE) Urine Glucose (UA) Negative mg/dL (NEG) Urine Ketones (Stick) Negative mg/dL (NEG) Urine Blood Negative (NEG) Urine Nitrite Positive (NEG) Urine Bilirubin Negative (NEG) Urine Urobilinogen Dipstick 0.2 mg/dL (0.2 mg/dL) Urine Leukocyte Esterase Large (NEG) Urine RBC 0 /HPF (0-2) Urine WBC 11-20 /HPF (0-4) Urine Squamous Epithelial Cells Few /LPF Urine Bacteria Many /HPF (0-FEW) Urine Mucus Slight /LPF Nasal Screen MRSA (PCR) Negative (Negative) VALENCIA COSBY MD Jan 24, 2018 15:55
[2018-01-24 19:00] VITALS: BP 176/91
[2018-01-24 23:00] VITALS: BP 179/79
--- NOTE | 2018-01-25 00:47 | CONS ---
DATE OF CONSULTATION: 01/24/2018 REFERRING PHYSICIAN: Dr. Aguilera. REASON FOR CONSULTATION: Bilateral leg weakness. HISTORY OF PRESENT ILLNESS: The patient is a 67-year-old woman who fell in the shower trying to reach for the shampoo. According to nursing staff, she is normally in a wheelchair. She was in a shower chair, but she was unable to get to the soap, so tried to stand up and get to the soap and her leg gave out and she fell down fracturing the superior inferior pubic ramus on the right. It is a nondisplaced fracture, so she is able to weightbear to tolerability according to Orthopedics. The patient herself is an extremely poor historian. I did speak with her cousin who she allowed me to call by the name of Shria Liu, telephone [phone]. Ms. Liu is quite familiar with her history. She reports that she was doing well until 07/2017. She then developed more anxiety and was treated by [facility] with more and more psychotropic medications. She then became so depressed, she wanted to kill herself. She started to develop difficulty with walking with these medications and was admitted to [facility]. They diagnosed her with dystonia. They felt it was a drug-induced dystonia and discontinued the drugs. Her feet turned downward and she could not move her legs or feet very well. She went through withdrawal and eventually seemed to improve. She went to rehab, but did not gain back her ability to walk. Prior to July, she was able to walk well and walk around an entire store. She did not learn to drive, but her cousin would take her to the store every week or two to get groceries. From multiple attempts at rehab, she ultimately went to assisted living at [facility]. She has been there for a few months. 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 She was a good care provider and when her parents became terminally ill, she did take care of her parents. Her entire life she had lived with her parents. Her sister also lived with her parents who also had cognitive issues. Her sister was eventually placed in an institution and then in that facility. In addition to being at [facility], she spent a short time at [facility] and also at [facility]. Neither Ms. Liu or the patient can tell me the investigation that was performed to look into her deficits. PAST MEDICAL HISTORY: 1. 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 2. Anxiety and depression, which seemed to worsen in 07/2017. 3. Difficulty with gait, which initially may have been drug induced, but has persisted. 4. Inability to walk. ALLERGIES: No known allergies to drugs. MEDICATIONS: Prior to admission unknown, sounds as if she was taken off all medicine. FAMILY HISTORY: It would seem that there is cognitive issue with both her and her sister. There are also mental health issues with her and her sister. SOCIAL HISTORY: She had been living alone until she declined in 07/2017. She never and has no children. She does not smoke tobacco, drink alcohol or use recreational drugs. REVIEW OF SYSTEMS: She is an unreliable historian. She does not complain of any headache. There has been no change of vision. She is not aware of her cognitive deficits. She does not have difficulty with swallowing. She denies shortness of breath, chest or abdominal pain. She does have pain in the right pelvis, but just received some pain meds and the pain is controlled. She has not had fever or rash. No gastrointestinal complaints. She has difficulty controlling her bladder. She does have weakness and difficulty moving her legs. She does not have swelling, bruising or bleeding. PHYSICAL EXAMINATION: VITAL SIGNS: The blood pressure was 169/78, pulse 63, respirations 20, temperature 98.1 degrees Fahrenheit. Oximetry was 97% on room air. Her weight was 116.2 pounds with a height of 64 inches and a calculated body mass index of 19.9. GENERAL: She was alert, awake and cooperative. Speech was fluent and clear. She had a very limited fund of recent and remote knowledge. Attention and concentration appeared fair. She appeared well groomed and well nourished. She was well oriented. She could not spell the word world forward or backwards. She did complete high school, but back when she went to high school, they did not have special classes or special treatment. She has spent much of her high school career at home, I believe. She never learnt to read according to her cousin. She never learned to drive. NEUROLOGIC: Examination of the cranial nerves revealed visual hughes were full to confrontation. Extraocular movements were intact. The eyes were conjugate. Pursuit movements were smooth and saccadic eye movements were without dysmetria. Pupils were 3 mm and reactive. Funduscopic exam did not reveal papilledema, exudate or hemorrhage. Facial sensation was intact. The muscles of mastication and facial expression were powerful symmetrically. Hearing was intact to finger rub. The palate arched symmetrically and the tongue was midline with full range of motion. Sternocleidomastoid and trapezius were powerful. Muscle bulk and tone was normal. There was no spasticity or rigidity. Power was full and symmetric in the arms. In the legs, there was marked weakness with hip flexion, but it was also limited by pain, so I am not sure this was limited by the fracture potentially. Knee flexion was quite powerful. She was able to dorsi and plantarflex her feet, but there was marked limited in range of motion almost as if the ankles were fused. Reflexes were 2/4 in the upper extremities and at the knees, but absent at the ankles. The toes were not upgoing. Coordination testing with [id number], fine motor and rapid alternating movements was well performed. She could not do [id number] because of the pain and weakness. Sensation was intact to pain, light touch, proprioception, graphesthesia, cold thermal and vibration. Interestingly, she could feel sharp at the feet, but not in the thighs. She could perceive vibration in the feet as well as the knees. Cold thermal was perceived in the feet. There was no extinction to double simultaneous stimulation. Gait was not testable. Auscultation of the carotid arteries did not reveal a bruit. Heart rhythm is regular without a murmur. Peripheral pulses are symmetric. There was no edema or cyanosis. REVIEW OF LABORATORY DATA: CBC revealed a normal white blood cell count and platelet count. Hemoglobin was low at 9.6, hematocrit at 28.6. Chemistries revealed normal electrolytes, BUN, creatinine and glucose at 101. Calcium was 8.6. Liver enzymes were not elevated. Urinalysis revealed 11-20 white blood cells and a few squamous epithelial cells and many bacteria. Nitrite was positive. PT/INR was 1.2 and PTT was 37. Nasal screen MRSA was negative. Chest x-ray was performed 01/22/2018 and revealed moderate cardiomegaly. Hip and pelvis x-ray revealed fracture of the right superior and inferior pubic ramus. IMPRESSION: The patient is a 67-year-old woman who began to have difficulty in 07/2017. She was placed on many psychotropic medications according to her cousin. She had difficulty with suicidality and depression. She spent some time at mental health facilities. She spent time at [facility], [facility] and most time at [facility]. Unfortunately, neither the cousin nor the patient could really share with me the investigation that was performed or the ultimate conclusions of the diagnosis. She clearly has an abnormal exam. She has what appeared to be increased tone in her feet, which potentially could be a drug-induced dystonia, although she is off these medications. At the present time, she does not seem to be having difficulty with anxiety or depression. It is possible she has a myelopathy contributing to the dysfunction in her legs. I do not see severe peripheral polyneuropathy, although there may be some neuropathy with loss of ankle reflex. RECOMMENDATIONS: I have asked the nurse to request records for , [facility] and [facility]. Specifically, H and P's, discharge summary, consults, imaging results and lab work. Once we get these results, we can determine the next logical step of investigation or if there is further investigation that needs to be performed. I appreciate being involved in her care. VALENCIA COSBY MD DR: GILMER/danna JOB#: [id number] / [id number] Jeremy Clark MD, Ferilyn MD
[2018-01-25] MEDS: HYDROcodone/APAP 5/325MG 1 TAB TABLET PO PRN ×4 (01:17→17:54)
[2018-01-25 03:00] VITALS: BP 182/83
[2018-01-25] MEDS: cloNIDine HCL 0.1 MG TABLET PO PRN ×2 (03:53→08:59)
[2018-01-25 05:02] LABS: BASO % 0 % (0-3); EOS # 0.3 x10^3/uL (0.0-0.7); EOS % 5 % (0-3); HEMOGLOBIN 10.7 g/dL (12.0-15.5); LYMPH % 17 % (24-48); MEAN CORPUSCULAR HEMOGLOBIN 29 pg (25-35); MEAN CORPUSCULAR HGB CONC 35 g/dL (31-37); MEAN CORPUSCULAR VOLUME 83 fL (79-100); MONO # 0.4 x10^3/uL (0.0-1.1); MONO % 6 % (0-9); NEUT # 4.5 x10^3uL (1.8-7.7); NEUT % 72 % (31-73); PLATELET COUNT 269 x10^3/uL (140-400); RED BLOOD COUNT 3.75 x10^6/uL (3.50-5.40); RED CELL DISTRIBUTION WIDTH 15.4 % (11.5-14.5); WHITE BLOOD COUNT 6.3 x10^3/uL (4.0-11.0)
[2018-01-25 05:26] LABS: CALCIUM 8.7 mg/dL (8.5-10.1); CREATININE 0.6 mg/dL (0.6-1.0); POTASSIUM 3.1 mmol/L (3.5-5.1)
[2018-01-25 07:00] VITALS: BP 171/80
[2018-01-25] MEDS: CIPROFLOXACIN HCL 250 MG TABLET. PO SCH ×2 (08:59→20:22)
[2018-01-25] MEDS: LACTOBACILLUS RHAMNOSUS GG 1 CAPSULE. PO SCH ×2 (09:00→20:22)
[2018-01-25] MEDS ORDERED: POTASSIUM CHLORIDE 20 MEQ TABLET.ER. PO ONE (09:45)
[2018-01-25 11:00] VITALS: BP 179/87
[2018-01-25] MEDS: CHOLECALCIFEROL (VITAMIN D3) 5,000 UNIT CAPSULE PO SCH (11:07)
[2018-01-25] MEDS: LORazepam 1 MG TABLET PO PRN ×2 (11:08→20:22)
[2018-01-25 15:00] VITALS: BP 101/58
--- NOTE | 2018-01-25 15:28 | PDOC ---
PROGRESS NOTES Chief Complaint Chief Complaint Fall w/pelvic fx UTI Hypokalemia leg tingling and hand and leg weakness History of Present Illness History of Present Illness hand and leg weakness cannot walk well some pain, hip pain, but is OK her anxiety got worse when I mentioned she should consider f/u her weakness with [facility], as they stopped her meds that they believed were causing the problem, and we are only following their plan Vitals Vitals Vital Signs Date Time Temp Pulse Resp B/P (MAP) Pulse Ox O2 Delivery O2 Flow Rate FiO2 01/25/18 12:08 Nasal Cannula 2.0 01/25/18 11:00 98.1 71 18 179/87 (117) 96 98.1 Physical Exam General: Alert, Cooperative, No acute distress Heart: Regular rate, No murmurs Lungs: Clear Abdomen: Normal bowel sounds, Soft Extremities: No clubbing, No cyanosis, Other (Tenderness over R pelvis) Skin: No rashes, No significant lesion Labs LABS Laboratory Tests Test 01/25/18 03:50 White Blood Count 6.3 x10^3/uL (4.0-11.0) Red Blood Count 3.75 x10^6/uL (3.50-5.40) Hemoglobin 10.7 g/dL (12.0-15.5) Hematocrit 31.0 % (36.0-47.0) Mean Corpuscular Volume 83 fL (79-100) Mean Corpuscular Hemoglobin 29 pg (25-35) Mean Corpuscular Hemoglobin Concent 35 g/dL (31-37) Red Cell Distribution Width 15.4 % (11.5-14.5) Platelet Count 269 x10^3/uL (140-400) Neutrophils (%) (Auto) 72 % (31-73) Lymphocytes (%) (Auto) 17 % (24-48) Monocytes (%) (Auto) 6 % (0-9) Eosinophils (%) (Auto) 5 % (0-3) Basophils (%) (Auto) 0 % (0-3) Neutrophils # (Auto) 4.5 x10^3uL (1.8-7.7) Lymphocytes # (Auto) 1.0 x10^3/uL (1.0-4.8) Monocytes # (Auto) 0.4 x10^3/uL (0.0-1.1) Eosinophils # (Auto) 0.3 x10^3/uL (0.0-0.7) Basophils # (Auto) 0.0 x10^3/uL (0.0-0.2) Sodium Level 138 mmol/L (136-145) Potassium Level 3.1 mmol/L (3.5-5.1) Chloride Level 103 mmol/L (98-107) Carbon Dioxide Level 26 mmol/L (21-32) Anion Gap 9 (6-14) Blood Urea Nitrogen 6 mg/dL (7-20) Creatinine 0.6 mg/dL (0.6-1.0) Estimated GFR (Cockcroft-Gault) 100.0 Glucose Level 105 mg/dL (70-99) Calcium Level 8.7 mg/dL (8.5-10.1) Magnesium Level 1.8 mg/dL (1.8-2.4) Review of Systems Review of Systems no n/v/d her anxiety got worse when I mentioned she should consider f/u her weakness with [facility], as they stopped her meds that they believed were causing the problem, and we are only following their plan Assessment and Plan Assessmemt and Plan Problems Medical Problems: (1) Fall Status: Acute (2) Pelvis fracture, right Status: Acute Comment Review of Relevant I have reviewed the following items sourav (where applicable) has been applied. Labs Laboratory Tests Test 01/25/18 03:50 White Blood Count 6.3 x10^3/uL (4.0-11.0) Red Blood Count 3.75 x10^6/uL (3.50-5.40) Hemoglobin 10.7 g/dL (12.0-15.5) Hematocrit 31.0 % (36.0-47.0) Mean Corpuscular Volume 83 fL (79-100) Mean Corpuscular Hemoglobin 29 pg (25-35) Mean Corpuscular Hemoglobin Concent 35 g/dL (31-37) Red Cell Distribution Width 15.4 % (11.5-14.5) Platelet Count 269 x10^3/uL (140-400) Neutrophils (%) (Auto) 72 % (31-73) Lymphocytes (%) (Auto) 17 % (24-48) Monocytes (%) (Auto) 6 % (0-9) Eosinophils (%) (Auto) 5 % (0-3) Basophils (%) (Auto) 0 % (0-3) Neutrophils # (Auto) 4.5 x10^3uL (1.8-7.7) Lymphocytes # (Auto) 1.0 x10^3/uL (1.0-4.8) Monocytes # (Auto) 0.4 x10^3/uL (0.0-1.1) Eosinophils # (Auto) 0.3 x10^3/uL (0.0-0.7) Basophils # (Auto) 0.0 x10^3/uL (0.0-0.2) Sodium Level 138 mmol/L (136-145) Potassium Level 3.1 mmol/L (3.5-5.1) Chloride Level 103 mmol/L (98-107) Carbon Dioxide Level 26 mmol/L (21-32) Anion Gap 9 (6-14) Blood Urea Nitrogen 6 mg/dL (7-20) Creatinine 0.6 mg/dL (0.6-1.0) Estimated GFR (Cockcroft-Gault) 100.0 Glucose Level 105 mg/dL (70-99) Calcium Level 8.7 mg/dL (8.5-10.1) Magnesium Level 1.8 mg/dL (1.8-2.4) Laboratory Tests Test 01/25/18 03:50 White Blood Count 6.3 x10^3/uL (4.0-11.0) Red Blood Count 3.75 x10^6/uL (3.50-5.40) Hemoglobin 10.7 g/dL (12.0-15.5) Hematocrit 31.0 % (36.0-47.0) Mean Corpuscular Volume 83 fL (79-100) Mean Corpuscular Hemoglobin 29 pg (25-35) Mean Corpuscular Hemoglobin Concent 35 g/dL (31-37) Red Cell Distribution Width 15.4 % (11.5-14.5) Platelet Count 269 x10^3/uL (140-400) Neutrophils (%) (Auto) 72 % (31-73) Lymphocytes (%) (Auto) 17 % (24-48) Monocytes (%) (Auto) 6 % (0-9) Eosinophils (%) (Auto) 5 % (0-3) Basophils (%) (Auto) 0 % (0-3) Neutrophils # (Auto) 4.5 x10^3uL (1.8-7.7) Lymphocytes # (Auto) 1.0 x10^3/uL (1.0-4.8) Monocytes # (Auto) 0.4 x10^3/uL (0.0-1.1) Eosinophils # (Auto) 0.3 x10^3/uL (0.0-0.7) Basophils # (Auto) 0.0 x10^3/uL (0.0-0.2) Sodium Level 138 mmol/L (136-145) Potassium Level 3.1 mmol/L (3.5-5.1) Chloride Level 103 mmol/L (98-107) Carbon Dioxide Level 26 mmol/L (21-32) Anion Gap 9 (6-14) Blood Urea Nitrogen 6 mg/dL (7-20) Creatinine 0.6 mg/dL (0.6-1.0) Estimated GFR (Cockcroft-Gault) 100.0 Glucose Level 105 mg/dL (70-99) Calcium Level 8.7 mg/dL (8.5-10.1) Magnesium Level 1.8 mg/dL (1.8-2.4) Microbiology 01/22/18 Urine Culture - Preliminary, Resulted 01/22/18 Urine Culture Result 1 ([facility]) - Preliminary, Resulted Medications Current Medications Ondansetron HCl (Zofran) 4 mg PRN Q8HRS PRN IV NAUSEA/VOMITING 1ST CHOICE Last administered on 01/22/18at 22:57; Start 01/22/18 at 22:30; Stop 01/23/18 at 22:29 ; Status DC Morphine Sulfate (Morphine Sulfate) 4 mg PRN Q2HR PRN IV SEVERE PAIN Last administered on 01/23/18at 17:36; Start 01/22/18 at 22:30; Stop 01/23/18 at 22:29; Status DC Sodium Chloride 1,000 ml @ 75 mls/hr 1X ONCE IV Last administered on at 22:56; Start 01/22/18 at 23:00; Stop 01/23/18 at 12:19; Status DC Potassium Chloride (Klor-Con) 40 meq 1X ONCE PO Last administered on at 22:57; Start 01/22/18 at 23:00; Stop 01/22/18 at 23:01; Status DC Ciprofloxacin (Cipro) 500 mg BID PO Last administered on 01/25/18 08:59; Start 01/23/18 at 21:00 Lactobacillus Rhamnosus (Culturelle) 1 cap BID PO Last administered on 09:00; Start 01/23/18 at 21:00 Acetaminophen/ Hydrocodone Bitart (Lortab 5/325) 1 tab PRN Q4HRS PRN PO PAIN Last administered on 01/25/18at 11:08; Start 01/24/18 at 08:15 Clonidine HCl (Catapres) 0.1 mg PRN Q6HRS PRN PO HYPERTENSION Last administered on 01/25/18 08:59; Start 01/25/18 at 03:30 Vitamin D (Vitamin D3) 5,000 unit DAILY PO Last administered on 01/25/18 11:07 ; Start 01/25/18 at 10:00 Potassium Chloride (Klor-Con) 40 meq 1X ONCE PO Last administered on 01/25/18 11:07; Start 01/25/18 at 09:45; Stop 01/25/18 at 09:46; Status DC Potassium Chloride (Klor-Con) 20 meq DAILYWBKFT PO ; Start 01/26/18 at 08:00 Lorazepam (Ativan) 1 mg PRN Q8HRS PRN PO ANXIETY / AGITATION; Start 01/25/18 at 11:30 Vitals/I & O Vital Sign - Last 24 Hours 01/24/18 01/24/18 01/24/18 01/24/18 17:03 19:00 20:00 21:12 Temp 98.4 98.4 Pulse 78 Resp 18 18 B/P (MAP) 176/91 (119) Pulse Ox 90 90 O2 Delivery Room Air Room Air Nasal Cannula Nasal Cannula O2 Flow Rate 2.0 2.0 01/24/18 01/25/18 01/25/18 01/25/18 23:00 01:17 02:17 03:00 Temp 98.3 98.8 98.3 98.8 Pulse 71 80 Resp 18 18 16 18 B/P (MAP) 179/79 (112) 182/83 (116) Pulse Ox 97 97 97 93 O2 Delivery Room Air Nasal Cannula Room Air O2 Flow Rate 2.0 01/25/18 01/25/18 01/25/18 01/25/18 03:53 06:09 07:00 08:59 Temp 97.6 97.6 Pulse 80 65 65 Resp 18 18 B/P (MAP) 182/83 171/80 (110) 171/80 Pulse Ox 93 94 O2 Delivery Nasal Cannula Room Air O2 Flow Rate 2.0 01/25/18 01/25/18 01/25/18 11:00 11:08 12:08 Temp 98.1 98.1 Pulse 71 Resp 18 B/P (MAP) 179/87 (117) Pulse Ox 96 O2 Delivery Nasal Cannula Nasal Cannula Nasal Cannula O2 Flow Rate 2.0 2.0 2.0 Intake and Output 01/24/18 01/24/18 01/25/18 15:00 23:00 07:00 Intake Total 550 ml 800 ml Output Total 600 ml Balance 550 ml 200 ml EREN BALLESTEROS MD Jan 25, 2018 15:28
[2018-01-25 19:00] VITALS: BP 163/82
--- NOTE | 2018-01-25 19:38 | PDOC ---
PROGRESS NOTES Assessment 1. Fracture of right superior and inferior pubic ramus due to fall. This continues to be painful. 2. I have reviewed records from [facility]. She was admitted from September 03, 2017 until October 01, 2017. She presented with bilateral leg weakness and spasticity. She underwent extensive investigation which I reviewed. She had blood work looking for deficiency states which was not revealing. She had MRI of the brain, cervical and thoracic spines which did not reveal specific stroke , stenosis or myelopathy. 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 She had CTA of the head and neck and aorta which did not reveal a lesion. It was felt she had a dystonic reaction from the Haldol that she received as a psychotropic medication. She was discharged on acetaminophen, baclofen and melatonin. 3. She continues to have an endless list of complaints. She is concerned about pain, numbness and weight loss. I feel that much of her complain is related to underlying anxiety disorder and cognitive dysfunction. In review of labs however I did not see evidence for investigation for autoimmune disease. Plan 1. I will order labs to look for an autoimmune process. 2. She is undergone imaging of her central neuro axis. I do not see a compelling reason to repeat MRI brain, cervical and thoracic spines. 3. She did not have evidence for diffuse neuropathy in her legs. I do not see a reason to repeat the EMG of her legs. One could consider an EMG of the arms as an outpatient to better evaluate her pain complaints as well as numbness in her hands. 4. She may be transferred to a rehabilitation facility when medically stable. 5. I feel that her psychiatric illness contributes to her current clinical presentation. We have to be careful about medications used because she had adverse effects which has persisted. She needs to follow-up with psychiatry. Subjective Why have I lost weight? Why I have pain and numbness in my hands? I still have pain in my right leg. I can't move my legs very well. Objective Vital Signs Date Time Temp Pulse Resp B/P (MAP) Pulse Ox O2 Delivery O2 Flow Rate FiO2 01/25/18 18:54 Nasal Cannula 2.0 01/25/18 15:00 98.4 76 18 101/58 (72) 93 98.4 Intake and Output 01/25/18 07:00 Intake Total 1350 ml Output Total 600 ml Balance 750 ml Intake Oral 1350 ml Output Urine Total 600 ml # Voids 8 PHYSICAL EXAM She was alert, awake and cooperative. Speech was fluent and clear. She did not have a good fund of recent and remote knowledge. Attention and concentration was intact. Cranial nerves II through XII are intact. Muscle bulk and tone was normal. She no longer seem to have spasticity in her legs. Power was fairly full in the arms. She had good strength in the left leg with hip and knee flexion as well as dorsi and plantar flexion. She had good strength on the right leg with dorsi and plantar flexion. She had pain to hip flexion with resistance on the right leg. Review of Relevant I have reviewed the following items sourav (where applicable) has been applied. Labs Laboratory Tests Test 01/25/18 03:50 White Blood Count 6.3 x10^3/uL (4.0-11.0) Red Blood Count 3.75 x10^6/uL (3.50-5.40) Hemoglobin 10.7 g/dL (12.0-15.5) Hematocrit 31.0 % (36.0-47.0) Mean Corpuscular Volume 83 fL (79-100) Mean Corpuscular Hemoglobin 29 pg (25-35) Mean Corpuscular Hemoglobin Concent 35 g/dL (31-37) Red Cell Distribution Width 15.4 % (11.5-14.5) Platelet Count 269 x10^3/uL (140-400) Neutrophils (%) (Auto) 72 % (31-73) Lymphocytes (%) (Auto) 17 % (24-48) Monocytes (%) (Auto) 6 % (0-9) Eosinophils (%) (Auto) 5 % (0-3) Basophils (%) (Auto) 0 % (0-3) Neutrophils # (Auto) 4.5 x10^3uL (1.8-7.7) Lymphocytes # (Auto) 1.0 x10^3/uL (1.0-4.8) Monocytes # (Auto) 0.4 x10^3/uL (0.0-1.1) Eosinophils # (Auto) 0.3 x10^3/uL (0.0-0.7) Basophils # (Auto) 0.0 x10^3/uL (0.0-0.2) Sodium Level 138 mmol/L (136-145) Potassium Level 3.1 mmol/L (3.5-5.1) Chloride Level 103 mmol/L (98-107) Carbon Dioxide Level 26 mmol/L (21-32) Anion Gap 9 (6-14) Blood Urea Nitrogen 6 mg/dL (7-20) Creatinine 0.6 mg/dL (0.6-1.0) Estimated GFR (Cockcroft-Gault) 100.0 Glucose Level 105 mg/dL (70-99) Calcium Level 8.7 mg/dL (8.5-10.1) Magnesium Level 1.8 mg/dL (1.8-2.4) Laboratory Tests Test 01/25/18 03:50 White Blood Count 6.3 x10^3/uL (4.0-11.0) Red Blood Count 3.75 x10^6/uL (3.50-5.40) Hemoglobin 10.7 g/dL (12.0-15.5) Hematocrit 31.0 % (36.0-47.0) Mean Corpuscular Volume 83 fL (79-100) Mean Corpuscular Hemoglobin 29 pg (25-35) Mean Corpuscular Hemoglobin Concent 35 g/dL (31-37) Red Cell Distribution Width 15.4 % (11.5-14.5) Platelet Count 269 x10^3/uL (140-400) Neutrophils (%) (Auto) 72 % (31-73) Lymphocytes (%) (Auto) 17 % (24-48) Monocytes (%) (Auto) 6 % (0-9) Eosinophils (%) (Auto) 5 % (0-3) Basophils (%) (Auto) 0 % (0-3) Neutrophils # (Auto) 4.5 x10^3uL (1.8-7.7) Lymphocytes # (Auto) 1.0 x10^3/uL (1.0-4.8) Monocytes # (Auto) 0.4 x10^3/uL (0.0-1.1) Eosinophils # (Auto) 0.3 x10^3/uL (0.0-0.7) Basophils # (Auto) 0.0 x10^3/uL (0.0-0.2) Sodium Level 138 mmol/L (136-145) Potassium Level 3.1 mmol/L (3.5-5.1) Chloride Level 103 mmol/L (98-107) Carbon Dioxide Level 26 mmol/L (21-32) Anion Gap 9 (6-14) Blood Urea Nitrogen 6 mg/dL (7-20) Creatinine 0.6 mg/dL (0.6-1.0) Estimated GFR (Cockcroft-Gault) 100.0 Glucose Level 105 mg/dL (70-99) Calcium Level 8.7 mg/dL (8.5-10.1) Magnesium Level 1.8 mg/dL (1.8-2.4) Microbiology 01/22/18 Urine Culture - Preliminary, Resulted 01/22/18 Urine Culture Result 1 ([facility]) - Preliminary, Resulted Medications Current Medications Ondansetron HCl (Zofran) 4 mg PRN Q8HRS PRN IV NAUSEA/VOMITING 1ST CHOICE Last administered on 01/22/18at 22:57; Start 01/22/18 at 22:30; Stop 01/23/18 at 22:29 ; Status DC Morphine Sulfate (Morphine Sulfate) 4 mg PRN Q2HR PRN IV SEVERE PAIN Last administered on 01/23/18at 17:36; Start 01/22/18 at 22:30; Stop 01/23/18 at 22:29; Status DC Sodium Chloride 1,000 ml @ 75 mls/hr 1X ONCE IV Last administered on at 22:56; Start 01/22/18 at 23:00; Stop 01/23/18 at 12:19; Status DC Potassium Chloride (Klor-Con) 40 meq 1X ONCE PO Last administered on at 22:57; Start 01/22/18 at 23:00; Stop 01/22/18 at 23:01; Status DC Ciprofloxacin (Cipro) 500 mg BID PO Last administered on 01/25/18at 08:59; Start 01/23/18 at 21:00 Lactobacillus Rhamnosus (Culturelle) 1 cap BID PO Last administered on at 09:00; Start 01/23/18 at 21:00 Acetaminophen/ Hydrocodone Bitart (Lortab 5/325) 1 tab PRN Q4HRS PRN PO PAIN Last administered on 01/25/18 17:54; Start 01/24/18 at 08:15 Clonidine HCl (Catapres) 0.1 mg PRN Q6HRS PRN PO HYPERTENSION Last administered on 01/25/18 08:59; Start 01/25/18 at 03:30 Vitamin D (Vitamin D3) 5,000 unit DAILY PO Last administered on 01/25/18 11:07 ; Start 01/25/18 at 10:00 Potassium Chloride (Klor-Con) 40 meq 1X ONCE PO Last administered on 01/25/18 11:07; Start 01/25/18 at 09:45; Stop 01/25/18 at 09:46; Status DC Potassium Chloride (Klor-Con) 20 meq DAILYWBKFT PO ; Start 01/26/18 at 08:00 Lorazepam (Ativan) 1 mg PRN Q8HRS PRN PO ANXIETY / AGITATION Last administered on 01/25/18 11:08; Start 01/25/18 at 11:30 Vitals/I & O Vital Sign - Last 24 Hours 01/24/18 01/24/18 01/24/18 01/25/18 20:00 21:12 23:00 01:17 Temp 98.3 98.3 Pulse 71 Resp 18 18 18 B/P (MAP) 179/79 (112) Pulse Ox 90 97 97 O2 Delivery Nasal Cannula Nasal Cannula Room Air Nasal Cannula O2 Flow Rate 2.0 2.0 2.0 01/25/18 01/25/18 01/25/18 01/25/18 02:17 03:00 03:53 06:09 Temp 98.8 98.8 Pulse 80 80 Resp 16 18 18 B/P (MAP) 182/83 (116) 182/83 Pulse Ox 97 93 93 O2 Delivery Room Air Nasal Cannula O2 Flow Rate 2.0 01/25/18 01/25/18 01/25/18 01/25/18 07:00 08:00 08:59 11:00 Temp 97.6 98.1 97.6 98.1 Pulse 65 65 71 Resp 18 18 B/P (MAP) 171/80 (110) 171/80 179/87 (117) Pulse Ox 94 96 O2 Delivery Room Air Nasal Cannula Nasal Cannula O2 Flow Rate 2.0 2.0 9/301/25/18 01/25/18 01/25/18 11:08 15:00 17:54 18:54 Temp 98.4 98.4 Pulse 76 Resp 18 B/P (MAP) 101/58 (72) Pulse Ox 93 O2 Delivery Nasal Cannula Room Air Nasal Cannula Nasal Cannula O2 Flow Rate 2.0 2.0 2.0 Intake and Output 01/24/18 01/24/18 01/25/18 15:00 23:00 07:00 Intake Total 550 ml 800 ml Output Total 600 ml Balance 550 ml 200 ml VALENCIA COSBY MD Jan 25, 2018 19:38
[2018-01-25 23:00] VITALS: BP 148/76
[2018-01-26 03:00] VITALS: BP 183/102
[2018-01-26] MEDS: cloNIDine HCL 0.1 MG TABLET PO PRN (03:27)
[2018-01-26 05:27] LABS: ALBUMIN 2.7 g/dL (3.4-5.0); ALBUMIN/GLOBULIN RATIO 0.8 (1.0-1.7); CALCIUM 8.7 mg/dL (8.5-10.1); CREATININE 0.7 mg/dL (0.6-1.0); GFR 83.7; TOTAL BILIRUBIN 0.7 mg/dL (0.2-1.0); TOTAL PROTEIN 6.3 g/dL (6.4-8.2)
[2018-01-26 06:50] LABS: BASO % 1 % (0-3); EOS # 0.3 x10^3/uL (0.0-0.7); EOS % 5 % (0-3); HEMATOCRIT 30.8 % (36.0-47.0); HEMOGLOBIN 10.5 g/dL (12.0-15.5); LYMPH # 1.4 x10^3/uL (1.0-4.8); LYMPH % 23 % (24-48); MEAN CORPUSCULAR HEMOGLOBIN 29 pg (25-35); MEAN CORPUSCULAR HGB CONC 34 g/dL (31-37); MEAN CORPUSCULAR VOLUME 83 fL (79-100); MONO # 0.4 x10^3/uL (0.0-1.1); MONO % 7 % (0-9); NEUT % 65 % (31-73); PLATELET COUNT 299 x10^3/uL (140-400); RED CELL DISTRIBUTION WIDTH 15.4 % (11.5-14.5); WHITE BLOOD COUNT 6.2 x10^3/uL (4.0-11.0)
[2018-01-26 07:00] VITALS: BP 164/80
[2018-01-26] MEDS: POTASSIUM CHLORIDE 20 MEQ TABLET.ER. PO SCH (08:26)
[2018-01-26] MEDS: CHOLECALCIFEROL (VITAMIN D3) 5,000 UNIT CAPSULE PO SCH (08:27)
[2018-01-26] MEDS: CIPROFLOXACIN HCL 250 MG TABLET. PO SCH ×2 (08:28→21:07)
[2018-01-26] MEDS: LACTOBACILLUS RHAMNOSUS GG 1 CAPSULE. PO SCH ×2 (08:28→21:08)
[2018-01-26 10:06] VITALS: BP 164/80
[2018-01-26] MEDS: HYDROcodone/APAP 5/325MG 1 TAB TABLET PO PRN ×2 (10:48→17:16)
--- NOTE | 2018-01-26 10:58 | PDOC ---
PROGRESS NOTES Assessment Problems Medical Problems: (1) Fall Status: Acute (2) Pelvis fracture, right Status: Acute Fracture of right superior and inferior pubic ramus due to fall. This continues to be painful. [facility] workup: She was admitted from September 03, 2017 until October 01, 2017. She presented with bilateral leg weakness and spasticity. She underwent extensive investigation which I reviewed. She had blood work looking for deficiency states which was not revealing. She had MRI of the brain, cervical and thoracic spines which did not reveal specific stroke, stenosis or myelopathy. 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 She had CTA of the head and neck and aorta which did not reveal a lesion. It was felt she had a dystonic reaction from the Haldol that she received as a psychotropic medication. She was discharged on acetaminophen, baclofen and melatonin. Plan Await autoimmune labs No reason to repeat MRI brain, cervical and thoracic spines. No reason to repeat the EMG of her legs. Transfer back to [place] when medically stable. Subjective Feels better Objective Vital Signs Date Time Temp Pulse Resp B/P (MAP) Pulse Ox O2 Delivery O2 Flow Rate FiO2 01/26/18 10:48 16 Room Air 01/26/18 10:06 97.5 72 164/80 (108) 97.5 01/26/18 07:00 92 01/25/18 20:10 2.0 Intake and Output 01/26/18 07:00 Intake Total 1020 ml Output Total 150 ml Balance 870 ml Intake Oral 1020 ml Output Urine Total 150 ml # Voids 5 PHYSICAL EXAM Alert. Oriented to person, does not know name of hospital or date. PERRL. EOMI. CN: no focal findings. Muscle tone: normal. Muscle strength: 4/5, splints right leg at 3/5 DTR: 2+ Plantar reflex: flexor Gait: not examined in bed. Sensory exam: no abnormal findings. No cerebellar signs elicited. Review of Relevant I have reviewed the following items sourav (where applicable) has been applied. Labs Laboratory Tests Test 01/25/18 03:50 01/26/18 03:20 White Blood Count 6.3 x10^3/uL (4.0-11.0) 6.2 x10^3/uL (4.0-11.0) Red Blood Count 3.75 x10^6/uL (3.50-5.40) 3.70 x10^6/uL (3.50-5.40) Hemoglobin 10.7 g/dL (12.0-15.5) 10.5 g/dL (12.0-15.5) Hematocrit 31.0 % (36.0-47.0) 30.8 % (36.0-47.0) Mean Corpuscular Volume 83 fL (79-100) 83 fL (79-100) Mean Corpuscular Hemoglobin 29 pg (25-35) 29 pg (25-35) Mean Corpuscular Hemoglobin Concent 35 g/dL (31-37) 34 g/dL (31-37) Red Cell Distribution Width 15.4 % (11.5-14.5) 15.4 % (11.5-14.5) Platelet Count 269 x10^3/uL (140-400) 299 x10^3/uL (140-400) Neutrophils (%) (Auto) 72 % (31-73) 65 % (31-73) Lymphocytes (%) (Auto) 17 % (24-48) 23 % (24-48) Monocytes (%) (Auto) 6 % (0-9) 7 % (0-9) Eosinophils (%) (Auto) 5 % (0-3) 5 % (0-3) Basophils (%) (Auto) 0 % (0-3) 1 % (0-3) Neutrophils # (Auto) 4.5 x10^3uL (1.8-7.7) 4.0 x10^3uL (1.8-7.7) Lymphocytes # (Auto) 1.0 x10^3/uL (1.0-4.8) 1.4 x10^3/uL (1.0-4.8) Monocytes # (Auto) 0.4 x10^3/uL (0.0-1.1) 0.4 x10^3/uL (0.0-1.1) Eosinophils # (Auto) 0.3 x10^3/uL (0.0-0.7) 0.3 x10^3/uL (0.0-0.7) Basophils # (Auto) 0.0 x10^3/uL (0.0-0.2) 0.0 x10^3/uL (0.0-0.2) Sodium Level 138 mmol/L (136-145) 136 mmol/L (136-145) Potassium Level 3.1 mmol/L (3.5-5.1) 4.0 mmol/L (3.5-5.1) Chloride Level 103 mmol/L (98-107) 103 mmol/L (98-107) Carbon Dioxide Level 26 mmol/L (21-32) 25 mmol/L (21-32) Anion Gap 9 (6-14) 8 (6-14) Blood Urea Nitrogen 6 mg/dL (7-20) 11 mg/dL (7-20) Creatinine 0.6 mg/dL (0.6-1.0) 0.7 mg/dL (0.6-1.0) Estimated GFR (Cockcroft-Gault) 100.0 83.7 Glucose Level 105 mg/dL (70-99) 94 mg/dL (70-99) Calcium Level 8.7 mg/dL (8.5-10.1) 8.7 mg/dL (8.5-10.1) Magnesium Level 1.8 mg/dL (1.8-2.4) Erythrocyte Sedimentation Rate 17 (0-25) BUN/Creatinine Ratio 16 (6-20) Total Bilirubin 0.7 mg/dL (0.2-1.0) Aspartate Amino Transf (AST/SGOT) 11 U/L (15-37) Alanine Aminotransferase (ALT/SGPT) 13 U/L (14-59) Alkaline Phosphatase 75 U/L (46-116) C-Reactive Protein, Quantitative 10.0 mg/L (0-3.3) Total Protein 6.3 g/dL (6.4-8.2) Albumin 2.7 g/dL (3.4-5.0) Albumin/Globulin Ratio 0.8 (1.0-1.7) 25-Hydroxy Vitamin D Total 36.7 ng/mL (30-100) Laboratory Tests Test 01/26/18 03:20 White Blood Count 6.2 x10^3/uL (4.0-11.0) Red Blood Count 3.70 x10^6/uL (3.50-5.40) Hemoglobin 10.5 g/dL (12.0-15.5) Hematocrit 30.8 % (36.0-47.0) Mean Corpuscular Volume 83 fL (79-100) Mean Corpuscular Hemoglobin 29 pg (25-35) Mean Corpuscular Hemoglobin Concent 34 g/dL (31-37) Red Cell Distribution Width 15.4 % (11.5-14.5) Platelet Count 299 x10^3/uL (140-400) Neutrophils (%) (Auto) 65 % (31-73) Lymphocytes (%) (Auto) 23 % (24-48) Monocytes (%) (Auto) 7 % (0-9) Eosinophils (%) (Auto) 5 % (0-3) Basophils (%) (Auto) 1 % (0-3) Neutrophils # (Auto) 4.0 x10^3uL (1.8-7.7) Lymphocytes # (Auto) 1.4 x10^3/uL (1.0-4.8) Monocytes # (Auto) 0.4 x10^3/uL (0.0-1.1) Eosinophils # (Auto) 0.3 x10^3/uL (0.0-0.7) Basophils # (Auto) 0.0 x10^3/uL (0.0-0.2) Erythrocyte Sedimentation Rate 17 (0-25) Sodium Level 136 mmol/L (136-145) Potassium Level 4.0 mmol/L (3.5-5.1) Chloride Level 103 mmol/L (98-107) Carbon Dioxide Level 25 mmol/L (21-32) Anion Gap 8 (6-14) Blood Urea Nitrogen 11 mg/dL (7-20) Creatinine 0.7 mg/dL (0.6-1.0) Estimated GFR (Cockcroft-Gault) 83.7 BUN/Creatinine Ratio 16 (6-20) Glucose Level 94 mg/dL (70-99) Calcium Level 8.7 mg/dL (8.5-10.1) Total Bilirubin 0.7 mg/dL (0.2-1.0) Aspartate Amino Transf (AST/SGOT) 11 U/L (15-37) Alanine Aminotransferase (ALT/SGPT) 13 U/L (14-59) Alkaline Phosphatase 75 U/L (46-116) C-Reactive Protein, Quantitative 10.0 mg/L (0-3.3) Total Protein 6.3 g/dL (6.4-8.2) Albumin 2.7 g/dL (3.4-5.0) Albumin/Globulin Ratio 0.8 (1.0-1.7) 25-Hydroxy Vitamin D Total 36.7 ng/mL (30-100) Microbiology 01/22/18 Urine Culture - Preliminary, Resulted 01/22/18 Urine Culture Result 1 (CHEL) - Preliminary, Resulted Medications Current Medications Ondansetron HCl (Zofran) 4 mg PRN Q8HRS PRN IV NAUSEA/VOMITING 1ST CHOICE Last administered on 01/22/18 22:57; Start 01/22/18 at 22:30; Stop 01/23/18 at 22:29 ; Status DC Morphine Sulfate (Morphine Sulfate) 4 mg PRN Q2HR PRN IV SEVERE PAIN Last administered on 01/23/18at 17:36; Start 01/22/18 at 22:30; Stop 01/23/18 at 22:29; Status DC Sodium Chloride 1,000 ml @ 75 mls/hr 1X ONCE IV Last administered on at 22:56; Start 01/22/18 at 23:00; Stop 01/23/18 at 12:19; Status DC Potassium Chloride (Klor-Con) 40 meq 1X ONCE PO Last administered on at 22:57; Start 01/22/18 at 23:00; Stop 01/22/18 at 23:01; Status DC Ciprofloxacin (Cipro) 500 mg BID PO Last administered on 01/26/18 08:28; Start 01/23/18 at 21:00 Lactobacillus Rhamnosus (Culturelle) 1 cap BID PO Last administered on 08:28; Start 01/23/18 at 21:00 Acetaminophen/ Hydrocodone Bitart (Lortab 5/325) 1 tab PRN Q4HRS PRN PO PAIN Last administered on 01/26/18 10:48; Start 01/24/18 at 08:15 Clonidine HCl (Catapres) 0.1 mg PRN Q6HRS PRN PO HYPERTENSION Last administered on 01/26/18 03:27; Start 01/25/18 at 03:30 Vitamin D (Vitamin D3) 5,000 unit DAILY PO Last administered on 01/26/18at 08:27 ; Start 01/25/18 at 10:00 Potassium Chloride (Klor-Con) 40 meq 1X ONCE PO Last administered on 01/25/18at 11:07; Start 01/25/18 at 09:45; Stop 01/25/18 at 09:46; Status DC Potassium Chloride (Klor-Con) 20 meq DAILYWBKFT PO Last administered on at 08:26; Start 01/26/18 at 08:00 Lorazepam (Ativan) 1 mg PRN Q8HRS PRN PO ANXIETY / AGITATION Last administered on 01/25/18 20:22; Start 01/25/18 at 11:30 Vitals/I & O Vital Sign - Last 24 Hours 01/25/18 01/25/18 01/25/18 01/25/18 11:00 11:08 15:00 17:54 Temp 98.1 98.4 98.1 98.4 Pulse 71 76 Resp 18 18 B/P (MAP) 179/87 (117) 101/58 (72) Pulse Ox 96 93 O2 Delivery Nasal Cannula Nasal Cannula Room Air Nasal Cannula O2 Flow Rate 2.0 2.0 2.0 01/25/18 01/25/18 01/25/18 01/25/18 18:54 19:00 20:10 23:00 Temp 98.2 97.5 98.2 97.5 Pulse 78 72 Resp 18 18 B/P (MAP) 163/82 (109) 148/76 (100) Pulse Ox 96 93 O2 Delivery Nasal Cannula Nasal Cannula Nasal Cannula Room Air O2 Flow Rate 2.0 2.0 2.0 01/26/18 01/26/18 01/26/18 01/26/18 03:00 03:27 07:00 10:06 Temp 97.5 97.5 97.5 97.5 97.5 97.5 Pulse 83 72 72 72 Resp 18 18 18 B/P (MAP) 183/102 (129) 183/102 164/80 (108) 164/80 (108) Pulse Ox 97 92 O2 Delivery Room Air Room Air Room Air 01/26/18 10:48 Resp 16 O2 Delivery Room Air Intake and Output 01/25/18 01/25/1801/26/18 15:00 23:00 07:00 Intake Total 1020 ml Output Total 150 ml Balance 870 ml ROYER LEA MD Jan 26, 2018 10:58
[2018-01-26] MEDS ORDERED: HYDR-2758 PO (11:36)
[2018-01-26] MEDS ORDERED: CIPR250T30 PO (11:36)
--- NOTE | 2018-01-26 11:37 | DISCH ---
DISCHARGE DISCHARGE INFORMATION: DISCHARGE DATE: Jan 26, 2018 FINAL DIAGNOSIS Problems Medical Problems: (1) Fall Status: Acute (2) Pelvis fracture, right Status: Acute CODE STATUS: Code Status: Full RETIREMENT: SNF STAY <30 DAYS: Yes LTAC: ADMIT TO LTAC: No POST DISCHARGE ORDERS: ACTIVITY ORDERS: Activity as tolerated WEIGHT BEARING STATUS: As tolerated FOLLOW-UP: PHYSICIAN FOLLOW-UP: 2 weeks, primary care TREATMENT/EQUIPMENT ORDERS: ADAPTIVE EQUIPMENT NEEDED: Front wheeled walker, Wheelchair Physical Therapy For: Evalulation/Treatment Occupational Therapy For: Evaluation/Treatment DISCHARGE MEDICATIONS: Home Meds Active Scripts Ciprofloxacin Hcl (CIPRO) 250 Mg Tablet, 1 TAB PO BID, #6 TAB Prov:EREN BALLESTEROS MD 01/26/18 Hydrocodone Bit/Acetaminophen (HYDROCODONE-APAP 5-325 ) 1 Each Tablet, 1 TAB PO PRN Q4HRS PRN for PAIN, #10 TAB Prov:EREN BALLESTEROS MD 01/26/18 EREN BALLESTEROS MD Jan 26, 2018 11:37
--- NOTE | 2018-01-26 11:42 | PDOC3 ---
Discharge Summary Visit Information Date of Admission: Jan 22, 2018 Date of Discharge: Jan 26, 2018 Final Diagnosis Fall w/pelvic fx UTI Hypokalemia leg tingling and hand and leg weakness parathesia, weakness and debility, acquired anxiety and depression, debilitating Vitals Problems Medical Problems: (1) Fall Status: Acute (2) Pelvis fracture, right Status: Acute Brief Hospital Course Allergies Allergies Coded Allergies Type Severity Reaction Last Updated Verified No Known Drug Allergies 01/22/18 No Vital Signs Vital Signs Date Time Temp Pulse Resp B/P (MAP) Pulse Ox O2 Delivery O2 Flow Rate FiO2 01/26/18 10:48 16 Room Air 01/26/18 10:06 97.5 72 164/80 (108) 97.5 01/26/18 07:00 92 01/25/18 20:10 2.0 Lab Results Laboratory Tests Test 01/25/18 03:50 01/26/18 03:20 White Blood Count 6.3 x10^3/uL (4.0-11.0) 6.2 x10^3/uL (4.0-11.0) Red Blood Count 3.75 x10^6/uL (3.50-5.40) 3.70 x10^6/uL (3.50-5.40) Hemoglobin 10.7 g/dL (12.0-15.5) 10.5 g/dL (12.0-15.5) Hematocrit 31.0 % (36.0-47.0) 30.8 % (36.0-47.0) Mean Corpuscular Volume 83 fL (79-100) 83 fL (79-100) Mean Corpuscular Hemoglobin 29 pg (25-35) 29 pg (25-35) Mean Corpuscular Hemoglobin Concent 35 g/dL (31-37) 34 g/dL (31-37) Red Cell Distribution Width 15.4 % (11.5-14.5) 15.4 % (11.5-14.5) Platelet Count 269 x10^3/uL (140-400) 299 x10^3/uL (140-400) Neutrophils (%) (Auto) 72 % (31-73) 65 % (31-73) Lymphocytes (%) (Auto) 17 % (24-48) 23 % (24-48) Monocytes (%) (Auto) 6 % (0-9) 7 % (0-9) Eosinophils (%) (Auto) 5 % (0-3) 5 % (0-3) Basophils (%) (Auto) 0 % (0-3) 1 % (0-3) Neutrophils # (Auto) 4.5 x10^3uL (1.8-7.7) 4.0 x10^3uL (1.8-7.7) Lymphocytes # (Auto) 1.0 x10^3/uL (1.0-4.8) 1.4 x10^3/uL (1.0-4.8) Monocytes # (Auto) 0.4 x10^3/uL (0.0-1.1) 0.4 x10^3/uL (0.0-1.1) Eosinophils # (Auto) 0.3 x10^3/uL (0.0-0.7) 0.3 x10^3/uL (0.0-0.7) Basophils # (Auto) 0.0 x10^3/uL (0.0-0.2) 0.0 x10^3/uL (0.0-0.2) Sodium Level 138 mmol/L (136-145) 136 mmol/L (136-145) Potassium Level 3.1 mmol/L (3.5-5.1) 4.0 mmol/L (3.5-5.1) Chloride Level 103 mmol/L (98-107) 103 mmol/L (98-107) Carbon Dioxide Level 26 mmol/L (21-32) 25 mmol/L (21-32) Anion Gap 9 (6-14) 8 (6-14) Blood Urea Nitrogen 6 mg/dL (7-20) 11 mg/dL (7-20) Creatinine 0.6 mg/dL (0.6-1.0) 0.7 mg/dL (0.6-1.0) Estimated GFR (Cockcroft-Gault) 100.0 83.7 Glucose Level 105 mg/dL (70-99) 94 mg/dL (70-99) Calcium Level 8.7 mg/dL (8.5-10.1) 8.7 mg/dL (8.5-10.1) Magnesium Level 1.8 mg/dL (1.8-2.4) Erythrocyte Sedimentation Rate 17 (0-25) BUN/Creatinine Ratio 16 (6-20) Total Bilirubin 0.7 mg/dL (0.2-1.0) Aspartate Amino Transf (AST/SGOT) 11 U/L (15-37) Alanine Aminotransferase (ALT/SGPT) 13 U/L (14-59) Alkaline Phosphatase 75 U/L (46-116) C-Reactive Protein, Quantitative 10.0 mg/L (0-3.3) Total Protein 6.3 g/dL (6.4-8.2) Albumin 2.7 g/dL (3.4-5.0) Albumin/Globulin Ratio 0.8 (1.0-1.7) 25-Hydroxy Vitamin D Total 36.7 ng/mL (30-100) Laboratory Tests Test 01/26/18 03:20 White Blood Count 6.2 x10^3/uL (4.0-11.0) Red Blood Count 3.70 x10^6/uL (3.50-5.40) Hemoglobin 10.5 g/dL (12.0-15.5) Hematocrit 30.8 % (36.0-47.0) Mean Corpuscular Volume 83 fL (79-100) Mean Corpuscular Hemoglobin 29 pg (25-35) Mean Corpuscular Hemoglobin Concent 34 g/dL (31-37) Red Cell Distribution Width 15.4 % (11.5-14.5) Platelet Count 299 x10^3/uL (140-400) Neutrophils (%) (Auto) 65 % (31-73) Lymphocytes (%) (Auto) 23 % (24-48) Monocytes (%) (Auto) 7 % (0-9) Eosinophils (%) (Auto) 5 % (0-3) Basophils (%) (Auto) 1 % (0-3) Neutrophils # (Auto) 4.0 x10^3uL (1.8-7.7) Lymphocytes # (Auto) 1.4 x10^3/uL (1.0-4.8) Monocytes # (Auto) 0.4 x10^3/uL (0.0-1.1) Eosinophils # (Auto) 0.3 x10^3/uL (0.0-0.7) Basophils # (Auto) 0.0 x10^3/uL (0.0-0.2) Erythrocyte Sedimentation Rate 17 (0-25) Sodium Level 136 mmol/L (136-145) Potassium Level 4.0 mmol/L (3.5-5.1) Chloride Level 103 mmol/L (98-107) Carbon Dioxide Level 25 mmol/L (21-32) Anion Gap 8 (6-14) Blood Urea Nitrogen 11 mg/dL (7-20) Creatinine 0.7 mg/dL (0.6-1.0) Estimated GFR (Cockcroft-Gault) 83.7 BUN/Creatinine Ratio 16 (6-20) Glucose Level 94 mg/dL (70-99) Calcium Level 8.7 mg/dL (8.5-10.1) Total Bilirubin 0.7 mg/dL (0.2-1.0) Aspartate Amino Transf (AST/SGOT) 11 U/L (15-37) Alanine Aminotransferase (ALT/SGPT) 13 U/L (14-59) Alkaline Phosphatase 75 U/L (46-116) C-Reactive Protein, Quantitative 10.0 mg/L (0-3.3) Total Protein 6.3 g/dL (6.4-8.2) Albumin 2.7 g/dL (3.4-5.0) Albumin/Globulin Ratio 0.8 (1.0-1.7) 25-Hydroxy Vitamin D Total 36.7 ng/mL (30-100) Brief Hospital Course Ms. Montes De Oca is a 67 old admit for hip pain after a fall, weakness deblity cannot feel hands or feet. Neuro consult, Penelope Styles and [facility] reviewed records, thorough exam. Psych meds had beenstopped by , patient feels wheelchair bound and may be psychiatric patient would benefit from f/u at to SNU, rehab PT and OT she needs to try to get out of wheelchair Discharge Information Condition at Discharge: Improved Follow Up: Weeks Disposition/Orders: D/C to Another Facility Scheduled Ciprofloxacin Hcl (Cipro) 250 Mg Tablet, 1 TAB PO BID, #6 Prescribed by: EREN BALLESTEROS on 01/26/18 1136 Scheduled PRN Hydrocodone Bit/Acetaminophen (Hydrocodone-Apap 5-325 ) 1 Each Tablet, 1 TAB PO PRN Q4HRS PRN for PAIN, #10 Prescribed by: EREN BALLESTEROS on 01/26/18 1136 Patient Instructions Patient Instructions > 30 min face to face > 15 min EREN BALLESTEROS MD Jan 26, 2018 11:41
[2018-01-26] MEDS: LORazepam 1 MG TABLET PO PRN ×2 (13:13→21:08)
[2018-01-26 15:00] VITALS: BP 129/70
[2018-01-26 19:00] VITALS: BP 146/78
[2018-01-26 19:13] LABS: RHEUMATOID FACTOR 10.2 IU/mL (0.0-13.9)
[2018-01-26 23:00] VITALS: BP 132/87
[2018-01-27 03:20] VITALS: BP 165/80
[2018-01-27 06:58] LABS: BASO % 1 % (0-3); EOS # 0.2 x10^3/uL (0.0-0.7); EOS % 3 % (0-3); HEMATOCRIT 33.8 % (36.0-47.0); HEMOGLOBIN 11.4 g/dL (12.0-15.5); LYMPH # 1.1 x10^3/uL (1.0-4.8); LYMPH % 20 % (24-48); MEAN CORPUSCULAR HEMOGLOBIN 28 pg (25-35); MEAN CORPUSCULAR HGB CONC 34 g/dL (31-37); MEAN CORPUSCULAR VOLUME 83 fL (79-100); MONO # 0.4 x10^3/uL (0.0-1.1); MONO % 7 % (0-9); NEUT # 3.8 x10^3uL (1.8-7.7); NEUT % 69 % (31-73); PLATELET COUNT 351 x10^3/uL (140-400); RED BLOOD COUNT 4.08 x10^6/uL (3.50-5.40); RED CELL DISTRIBUTION WIDTH 15.7 % (11.5-14.5); WHITE BLOOD COUNT 5.5 x10^3/uL (4.0-11.0)
[2018-01-27 07:00] VITALS: BP 160/83
--- NOTE | 2018-01-27 07:04 | PDOC ---
PROGRESS NOTES Chief Complaint Chief Complaint IMPRESSION Fall w/pelvic fx UTI Hypokalemia leg tingling and hand and leg weakness Fracture of right superior and inferior pubic ramus due to fall. History of Present Illness History of Present Illness hand and leg weakness cannot walk well some pain, hip pain, but is OK her anxiety got worse when I mentioned she should consider f/u her weakness with [facility], as they stopped her meds that they believed were causing the problem, and we are only following their plan Vitals Vitals Vital Signs Date Time Temp Pulse Resp B/P (MAP) Pulse Ox O2 Delivery O2 Flow Rate FiO2 01/27/18 03:20 98.9 88 16 165/80 (108) 96 Room Air 98.9 Physical Exam General: Alert, Oriented X3, Cooperative, No acute distress, mild distress Heart: Regular rate, Normal S1, No murmurs Lungs: Clear Abdomen: Normal bowel sounds, Soft, No hepatosplenomegaly Extremities: No clubbing, No cyanosis, Other (Tenderness over R pelvis) Skin: No rashes, No significant lesion Labs LABS dication: Mechanical fall and pelvis TECHNIQUE: Single AP view of the pelvis and frog-leg view of the right hip joint COMPARISON: None FINDINGS: There is mildly displaced fracture of the medial right superior and inferior pubic rami seen. The bilateral hip joints are intact. SI joints within normal limits. IMPRESSION: Fracture of the right superior and inferior pubic rami. Electronically signed by: Nguyễn Franco DO (01/22/2018 10:37 PM) [facility] DICTATED and SIGNED BY: NGUYỄN FRANCO DO DATE: 01/22/18 2235 Laboratory Tests Test 01/27/18 05:57 White Blood Count 5.5 x10^3/uL (4.0-11.0) Red Blood Count 4.08 x10^6/uL (3.50-5.40) Hemoglobin 11.4 g/dL (12.0-15.5) Hematocrit 33.8 % (36.0-47.0) Mean Corpuscular Volume 83 fL (79-100) Mean Corpuscular Hemoglobin 28 pg (25-35) Mean Corpuscular Hemoglobin Concent 34 g/dL (31-37) Red Cell Distribution Width 15.7 % (11.5-14.5) Platelet Count 351 x10^3/uL (140-400) Neutrophils (%) (Auto) 69 % (31-73) Lymphocytes (%) (Auto) 20 % (24-48) Monocytes (%) (Auto) 7 % (0-9) Eosinophils (%) (Auto) 3 % (0-3) Basophils (%) (Auto) 1 % (0-3) Neutrophils # (Auto) 3.8 x10^3uL (1.8-7.7) Lymphocytes # (Auto) 1.1 x10^3/uL (1.0-4.8) Monocytes # (Auto) 0.4 x10^3/uL (0.0-1.1) Eosinophils # (Auto) 0.2 x10^3/uL (0.0-0.7) Basophils # (Auto) 0.0 x10^3/uL (0.0-0.2) Assessment and Plan Assessmemt and Plan Problems Medical Problems: (1) Fall Status: Acute (2) Pelvis fracture, right Status: Acute Comment Review of Relevant I have reviewed the following items sourav (where applicable) has been applied. Labs Laboratory Tests Test 01/26/18 03:20 01/27/18 05:57 White Blood Count 6.2 x10^3/uL (4.0-11.0) 5.5 x10^3/uL (4.0-11.0) Red Blood Count 3.70 x10^6/uL (3.50-5.40) 4.08 x10^6/uL (3.50-5.40) Hemoglobin 10.5 g/dL (12.0-15.5) 11.4 g/dL (12.0-15.5) Hematocrit 30.8 % (36.0-47.0) 33.8 % (36.0-47.0) Mean Corpuscular Volume 83 fL (79-100) 83 fL (79-100) Mean Corpuscular Hemoglobin 29 pg (25-35) 28 pg (25-35) Mean Corpuscular Hemoglobin Concent 34 g/dL (31-37) 34 g/dL (31-37) Red Cell Distribution Width 15.4 % (11.5-14.5) 15.7 % (11.5-14.5) Platelet Count 299 x10^3/uL (140-400) 351 x10^3/uL (140-400) Neutrophils (%) (Auto) 65 % (31-73) 69 % (31-73) Lymphocytes (%) (Auto) 23 % (24-48) 20 % (24-48) Monocytes (%) (Auto) 7 % (0-9) 7 % (0-9) Eosinophils (%) (Auto) 5 % (0-3) 3 % (0-3) Basophils (%) (Auto) 1 % (0-3) 1 % (0-3) Neutrophils # (Auto) 4.0 x10^3uL (1.8-7.7) 3.8 x10^3uL (1.8-7.7) Lymphocytes # (Auto) 1.4 x10^3/uL (1.0-4.8) 1.1 x10^3/uL (1.0-4.8) Monocytes # (Auto) 0.4 x10^3/uL (0.0-1.1) 0.4 x10^3/uL (0.0-1.1) Eosinophils # (Auto) 0.3 x10^3/uL (0.0-0.7) 0.2 x10^3/uL (0.0-0.7) Basophils # (Auto) 0.0 x10^3/uL (0.0-0.2) 0.0 x10^3/uL (0.0-0.2) Erythrocyte Sedimentation Rate 17 (0-25) Sodium Level 136 mmol/L (136-145) Potassium Level 4.0 mmol/L (3.5-5.1) Chloride Level 103 mmol/L (98-107) Carbon Dioxide Level 25 mmol/L (21-32) Anion Gap 8 (6-14) Blood Urea Nitrogen 11 mg/dL (7-20) Creatinine 0.7 mg/dL (0.6-1.0) Estimated GFR (Cockcroft-Gault) 83.7 BUN/Creatinine Ratio 16 (6-20) Glucose Level 94 mg/dL (70-99) Calcium Level 8.7 mg/dL (8.5-10.1) Total Bilirubin 0.7 mg/dL (0.2-1.0) Aspartate Amino Transf (AST/SGOT) 11 U/L (15-37) Alanine Aminotransferase (ALT/SGPT) 13 U/L (14-59) Alkaline Phosphatase 75 U/L (46-116) C-Reactive Protein, Quantitative 10.0 mg/L (0-3.3) Total Protein 6.3 g/dL (6.4-8.2) Albumin 2.7 g/dL (3.4-5.0) Albumin/Globulin Ratio 0.8 (1.0-1.7) 25-Hydroxy Vitamin D Total 36.7 ng/mL (30-100) Rheumatoid Factor 10.2 IU/mL (0.0-13.9) Laboratory Tests Test 01/27/18 05:57 White Blood Count 5.5 x10^3/uL (4.0-11.0) Red Blood Count 4.08 x10^6/uL (3.50-5.40) Hemoglobin 11.4 g/dL (12.0-15.5) Hematocrit 33.8 % (36.0-47.0) Mean Corpuscular Volume 83 fL (79-100) Mean Corpuscular Hemoglobin 28 pg (25-35) Mean Corpuscular Hemoglobin Concent 34 g/dL (31-37) Red Cell Distribution Width 15.7 % (11.5-14.5) Platelet Count 351 x10^3/uL (140-400) Neutrophils (%) (Auto) 69 % (31-73) Lymphocytes (%) (Auto) 20 % (24-48) Monocytes (%) (Auto) 7 % (0-9) Eosinophils (%) (Auto) 3 % (0-3) Basophils (%) (Auto) 1 % (0-3) Neutrophils # (Auto) 3.8 x10^3uL (1.8-7.7) Lymphocytes # (Auto) 1.1 x10^3/uL (1.0-4.8) Monocytes # (Auto) 0.4 x10^3/uL (0.0-1.1) Eosinophils # (Auto) 0.2 x10^3/uL (0.0-0.7) Basophils # (Auto) 0.0 x10^3/uL (0.0-0.2) Microbiology 01/22/18 Urine Culture - Final, Complete 01/22/18 Urine Culture Result 1 (CHEL) - Final, Complete 01/22/18 Antimicrobic Susceptibility - Final, Complete Medications Current Medications Ondansetron HCl (Zofran) 4 mg PRN Q8HRS PRN IV NAUSEA/VOMITING 1ST CHOICE Last administered on 01/22/18 22:57; Start 01/22/18 at 22:30; Stop 01/23/18 at 22:29 ; Status DC Morphine Sulfate (Morphine Sulfate) 4 mg PRN Q2HR PRN IV SEVERE PAIN Last administered on 01/23/18at 17:36; Start 01/22/18 at 22:30; Stop 01/23/18 at 22:29; Status DC Sodium Chloride 1,000 ml @ 75 mls/hr 1X ONCE IV Last administered on at 22:56; Start 01/22/18 at 23:00; Stop 01/23/18 at 12:19; Status DC Potassium Chloride (Klor-Con) 40 meq 1X ONCE PO Last administered on at 22:57; Start 01/22/18 at 23:00; Stop 01/22/18 at 23:01; Status DC Ciprofloxacin (Cipro) 500 mg BID PO Last administered on 01/26/18 21:07; Start 01/23/18 at 21:00 Lactobacillus Rhamnosus (Culturelle) 1 cap BID PO Last administered on 21:08; Start 01/23/18 at 21:00 Acetaminophen/ Hydrocodone Bitart (Lortab 5/325) 1 tab PRN Q4HRS PRN PO PAIN Last administered on 01/26/18 17:16; Start 01/24/18 at 08:15 Clonidine HCl (Catapres) 0.1 mg PRN Q6HRS PRN PO HYPERTENSION Last administered on 01/26/18 03:27; Start 01/25/18 at 03:30 Vitamin D (Vitamin D3) 5,000 unit DAILY PO Last administered on 01/26/18 08:27 ; Start 01/25/18 at 10:00 Potassium Chloride (Klor-Con) 40 meq 1X ONCE PO Last administered on 01/25/18at 11:07; Start 01/25/18 at 09:45; Stop 01/25/18 at 09:46; Status DC Potassium Chloride (Klor-Con) 20 meq [id number] PO Last administered on at 08:26; Start 01/26/18 at 08:00 Lorazepam (Ativan) 1 mg PRN Q8HRS PRN PO ANXIETY / AGITATION Last administered on 01/26/18at 21:08; Start 01/25/18 at 11:30 Active Scripts Active Cipro (Ciprofloxacin Hcl) 250 Mg Tablet 1 Tab PO BID Hydrocodone-Apap 5-325 (Hydrocodone Bit/Acetaminophen) 1 Each Tablet 1 Tab PO PRN Q4HRS PRN Vitals/I & O Vital Sign - Last 24 Hours 01/26/18 01/26/18 01/26/18 01/26/18 08:00 10:06 10:48 15:00 Temp 97.5 98.1 97.5 98.1 Pulse 72 76 Resp 18 16 16 B/P (MAP) 164/80 (108) 129/70 (89) Pulse Ox 94 O2 Delivery Room Air Room Air Room Air Room Air 01/26/18 01/26/18 01/26/18 01/26/18 17:16 18:15 19:00 20:00 Temp 98.2 98.2 Pulse 82 Resp 16 16 18 B/P (MAP) 146/78 (100) Pulse Ox 95 O2 Delivery Room Air Room Air Room Air Room Air 01/26/18 01/27/18 23:00 03:20 Temp 98.1 98.9 98.1 98.9 Pulse 85 88 Resp 18 16 B/P (MAP) 132/87 (102) 165/80 (108) Pulse Ox 95 96 O2 Delivery Room Air Room Air Intake and Output 01/26/18 01/26/18 01/27/18 15:00 23:00 07:00 Intake Total 0 ml Output Total 1 ml 0 ml Balance -1 ml 0 ml ENRIQUE MICHAELS MD Jan 27, 2018 07:04
[2018-01-27 07:25] LABS: CALCIUM 8.8 mg/dL (8.5-10.1); CREATININE 0.8 mg/dL (0.6-1.0); GFR 71.8; POTASSIUM 4.3 mmol/L (3.5-5.1)
[2018-01-27] MEDS: LACTOBACILLUS RHAMNOSUS GG 1 CAPSULE. PO SCH (08:50)
[2018-01-27] MEDS: CHOLECALCIFEROL (VITAMIN D3) 5,000 UNIT CAPSULE PO SCH (08:51)
[2018-01-27] MEDS: POTASSIUM CHLORIDE 20 MEQ TABLET.ER. PO SCH (08:51)
[2018-01-27] MEDS: CIPROFLOXACIN HCL 250 MG TABLET. PO SCH (08:51)
[2018-01-27] MEDS: LORazepam 1 MG TABLET PO PRN (09:00)
--- NOTE | 2018-01-27 10:21 | PDOC ---
PROGRESS NOTES Assessment Problems Medical Problems: (1) Fall Status: Acute (2) Pelvis fracture, right Status: Acute Fracture of right superior and inferior pubic ramus due to fall. This continues to be painful. Negative workup at [facility], including MRI of the brain, cervical and thoracic spines, CTA of the head and neck and aorta Agenesis of the corpus callosum Negative EMG at , showing peroneal neuropathy, no peripheral neuropathys Possible dystonic reaction from the Haldol that she received as a psychotropic medication. Records from [place] deal with in February 2017 and mission for anxiety and respiratory distress. Plan Await autoimmune labs No reason to repeat MRI brain, cervical and thoracic spines. No reason to repeat the EMG of her legs. Transfer back to [place] Subjective Leg pain is better Objective Vital Signs Date Time Temp Pulse Resp B/P (MAP) Pulse Ox O2 Delivery O2 Flow Rate FiO2 01/27/18 07:00 98.1 86 18 160/83 (108) 95 Room Air 98.1 Intake and Output 01/27/18 07:00 Intake Total 0 ml Output Total 1 ml Balance -1 ml Intake Oral 0 ml Output Urine Total 0 ml Stool Total 1 ml # Voids 5 # Bowel Movements 1 PHYSICAL EXAM Alert. Oriented to place and person, knows month and year PERRL. EOMI. CN: no focal findings. Muscle tone: normal. Muscle strength: 4/5, splints right leg at 3/5 DTR: 2+ Plantar reflex: flexor Gait: not examined in bed. Sensory exam: no abnormal findings. No cerebellar signs elicited. Review of Relevant I have reviewed the following items sourav (where applicable) has been applied. Labs Laboratory Tests Test 01/26/18 03:20 01/27/18 05:57 White Blood Count 6.2 x10^3/uL (4.0-11.0) 5.5 x10^3/uL (4.0-11.0) Red Blood Count 3.70 x10^6/uL (3.50-5.40) 4.08 x10^6/uL (3.50-5.40) Hemoglobin 10.5 g/dL (12.0-15.5) 11.4 g/dL (12.0-15.5) Hematocrit 30.8 % (36.0-47.0) 33.8 % (36.0-47.0) Mean Corpuscular Volume 83 fL (79-100) 83 fL (79-100) Mean Corpuscular Hemoglobin 29 pg (25-35) 28 pg (25-35) Mean Corpuscular Hemoglobin Concent 34 g/dL (31-37) 34 g/dL (31-37) Red Cell Distribution Width 15.4 % (11.5-14.5) 15.7 % (11.5-14.5) Platelet Count 299 x10^3/uL (140-400) 351 x10^3/uL (140-400) Neutrophils (%) (Auto) 65 % (31-73) 69 % (31-73) Lymphocytes (%) (Auto) 23 % (24-48) 20 % (24-48) Monocytes (%) (Auto) 7 % (0-9) 7 % (0-9) Eosinophils (%) (Auto) 5 % (0-3) 3 % (0-3) Basophils (%) (Auto) 1 % (0-3) 1 % (0-3) Neutrophils # (Auto) 4.0 x10^3uL (1.8-7.7) 3.8 x10^3uL (1.8-7.7) Lymphocytes # (Auto) 1.4 x10^3/uL (1.0-4.8) 1.1 x10^3/uL (1.0-4.8) Monocytes # (Auto) 0.4 x10^3/uL (0.0-1.1) 0.4 x10^3/uL (0.0-1.1) Eosinophils # (Auto) 0.3 x10^3/uL (0.0-0.7) 0.2 x10^3/uL (0.0-0.7) Basophils # (Auto) 0.0 x10^3/uL (0.0-0.2) 0.0 x10^3/uL (0.0-0.2) Erythrocyte Sedimentation Rate 17 (0-25) Sodium Level 136 mmol/L (136-145) 137 mmol/L (136-145) Potassium Level 4.0 mmol/L (3.5-5.1) 4.3 mmol/L (3.5-5.1) Chloride Level 103 mmol/L (98-107) 103 mmol/L (98-107) Carbon Dioxide Level 25 mmol/L (21-32) 25 mmol/L (21-32) Anion Gap 8 (6-14) 9 (6-14) Blood Urea Nitrogen 11 mg/dL (7-20) 10 mg/dL (7-20) Creatinine 0.7 mg/dL (0.6-1.0) 0.8 mg/dL (0.6-1.0) Estimated GFR (Cockcroft-Gault) 83.7 71.8 BUN/Creatinine Ratio 16 (6-20) Glucose Level 94 mg/dL (70-99) 97 mg/dL (70-99) Calcium Level 8.7 mg/dL (8.5-10.1) 8.8 mg/dL (8.5-10.1) Total Bilirubin 0.7 mg/dL (0.2-1.0) Aspartate Amino Transf (AST/SGOT) 11 U/L (15-37) Alanine Aminotransferase (ALT/SGPT) 13 U/L (14-59) Alkaline Phosphatase 75 U/L (46-116) C-Reactive Protein, Quantitative 10.0 mg/L (0-3.3) Total Protein 6.3 g/dL (6.4-8.2) Albumin 2.7 g/dL (3.4-5.0) Albumin/Globulin Ratio 0.8 (1.0-1.7) 25-Hydroxy Vitamin D Total 36.7 ng/mL (30-100) Rheumatoid Factor 10.2 IU/mL (0.0-13.9) Laboratory Tests Test 01/27/18 05:57 White Blood Count 5.5 x10^3/uL (4.0-11.0) Red Blood Count 4.08 x10^6/uL (3.50-5.40) Hemoglobin 11.4 g/dL (12.0-15.5) Hematocrit 33.8 % (36.0-47.0) Mean Corpuscular Volume 83 fL (79-100) Mean Corpuscular Hemoglobin 28 pg (25-35) Mean Corpuscular Hemoglobin Concent 34 g/dL (31-37) Red Cell Distribution Width 15.7 % (11.5-14.5) Platelet Count 351 x10^3/uL (140-400) Neutrophils (%) (Auto) 69 % (31-73) Lymphocytes (%) (Auto) 20 % (24-48) Monocytes (%) (Auto) 7 % (0-9) Eosinophils (%) (Auto) 3 % (0-3) Basophils (%) (Auto) 1 % (0-3) Neutrophils # (Auto) 3.8 x10^3uL (1.8-7.7) Lymphocytes # (Auto) 1.1 x10^3/uL (1.0-4.8) Monocytes # (Auto) 0.4 x10^3/uL (0.0-1.1) Eosinophils # (Auto) 0.2 x10^3/uL (0.0-0.7) Basophils # (Auto) 0.0 x10^3/uL (0.0-0.2) Sodium Level 137 mmol/L (136-145) Potassium Level 4.3 mmol/L (3.5-5.1) Chloride Level 103 mmol/L (98-107) Carbon Dioxide Level 25 mmol/L (21-32) Anion Gap 9 (6-14) Blood Urea Nitrogen 10 mg/dL (7-20) Creatinine 0.8 mg/dL (0.6-1.0) Estimated GFR (Cockcroft-Gault) 71.8 Glucose Level 97 mg/dL (70-99) Calcium Level 8.8 mg/dL (8.5-10.1) Microbiology 01/22/18 Urine Culture - Final, Complete 01/22/18 Urine Culture Result 1 (CHEL) - Final, Complete 01/22/18 Antimicrobic Susceptibility - Final, Complete Medications Current Medications Ondansetron HCl (Zofran) 4 mg PRN Q8HRS PRN IV NAUSEA/VOMITING 1ST CHOICE Last administered on 01/22/18at 22:57; Start 01/22/18 at 22:30; Stop 01/23/18 at 22:29 ; Status DC Morphine Sulfate (Morphine Sulfate) 4 mg PRN Q2HR PRN IV SEVERE PAIN Last administered on 01/23/18at 17:36; Start 01/22/18 at 22:30; Stop 01/23/18 at 22:29; Status DC Sodium Chloride 1,000 ml @ 75 mls/hr 1X ONCE IV Last administered on at 22:56; Start 01/22/18 at 23:00; Stop 01/23/18 at 12:19; Status DC Potassium Chloride (Klor-Con) 40 meq 1X ONCE PO Last administered on at 22:57; Start 01/22/18 at 23:00; Stop 01/22/18 at 23:01; Status DC Ciprofloxacin (Cipro) 500 mg BID PO Last administered on 01/27/18 08:51; Start 01/23/18 at 21:00 Lactobacillus Rhamnosus (Culturelle) 1 cap BID PO Last administered on 08:50; Start 01/23/18 at 21:00 Acetaminophen/ Hydrocodone Bitart (Lortab 5/325) 1 tab PRN Q4HRS PRN PO PAIN Last administered on 01/26/18 17:16; Start 01/24/18 at 08:15 Clonidine HCl (Catapres) 0.1 mg PRN Q6HRS PRN PO HYPERTENSION Last administered on 01/26/18 03:27; Start 01/25/18 at 03:30 Vitamin D (Vitamin D3) 5,000 unit DAILY PO Last administered on 01/27/18 08:51 ; Start 01/25/18 at 10:00 Potassium Chloride (Klor-Con) 40 meq 1X ONCE PO Last administered on 01/25/18 11:07; Start 01/25/18 at 09:45; Stop 01/25/18 at 09:46; Status DC Potassium Chloride (Klor-Con) 20 meq [id number] PO Last administered on 08:51; Start 01/26/18 at 08:00 Lorazepam (Ativan) 1 mg PRN Q8HRS PRN PO ANXIETY / AGITATION Last administered on 01/27/18 09:00; Start 01/25/18 at 11:30 Active Scripts Active Cipro (Ciprofloxacin Hcl) 250 Mg Tablet 1 Tab PO BID Hydrocodone-Apap 5-325 (Hydrocodone Bit/Acetaminophen) 1 Each Tablet 1 Tab PO PRN Q4HRS PRN Vitals/I & O Vital Sign - Last 24 Hours 01/26/18 01/26/18 01/26/18 01/26/18 10:48 15:00 17:16 18:15 Temp 98.1 98.1 Pulse 76 Resp 16 16 16 16 B/P (MAP) 129/70 (89) Pulse Ox 94 O2 Delivery Room Air Room Air Room Air Room Air 01/26/18 01/26/18 01/26/18 01/27/18 19:00 20:00 23:00 03:20 Temp 98.2 98.1 98.9 98.2 98.1 98.9 Pulse 82 85 88 Resp 18 18 16 B/P (MAP) 146/78 (100) 132/87 (102) 165/80 (108) Pulse Ox 95 95 96 O2 Delivery Room Air Room Air Room Air Room Air 01/27/18 07:00 Temp 98.1 98.1 Pulse 86 Resp 18 B/P (MAP) 160/83 (108) Pulse Ox 95 O2 Delivery Room Air Intake and Output 01/26/18 01/26/18 01/27/18 15:00 23:00 07:00 Intake Total 0 ml Output Total 1 ml 0 ml Balance -1 ml 0 ml ROYER LEA MD Jan 27, 2018 10:21
[2018-01-27 11:00] VITALS: BP 172/88
[2018-01-29 06:22] LABS: ANA INTERP Positive (.)
== END 2018-01-27 11:52 | DRG 535 ==
LOC: ER 21:37 → 4 NORTH 22:18
PROVIDERS: ADMIT Internal Medicine; ATTEND Internal Medicine
DX: S32.511A Fracture of superior rim of right pubis, initial encounter for closed fracture (principal); Q04.0 Congenital malformations of corpus callosum; N39.0 Urinary tract infection, site not specified; E87.6 Hypokalemia; S32.591A Other specified fracture of right pubis, initial encounter for closed fracture; I11.9 Hypertensive heart disease without heart failure; F41.9 Anxiety disorder, unspecified; Z82.49 Family history of ischemic heart disease and other diseases of the circulatory system; F32.9 Major depressive disorder, single episode, unspecified; Y92.128 Other place in nursing home as the place of occurrence of the external cause; Y99.8 Other external cause status; Q89.9 Congenital malformation, unspecified; W18.2XXA Fall in (into) shower or empty bathtub, initial encounter; Y93.E1 Activity, personal bathing and showering
CPT/HCPCS: 36415; 71045; 73502; 80048; 80053; 81001; 82306; 83735; 85025; 85610; 85651; 85730; 86038; 86140; 86431; 87086; 87186; 87641; 96361; 96374; A4314; J2270; J2405; J7030; 97110; 97116; 97535; 99285-25

== ENCOUNTER → 2018-09-29 | Outpatient (CLI) | payer OTHER ==
[~2018-09-29] MED LIST: CIPR250T30 PO; HYDR-2761 PO
--- NOTE | 2018-09-29 14:33 | RAD ---
DATE: 09/29/2018 EXAM: MAMMO LUIS SCREENING BILATERAL HISTORY: Routine screening COMPARISON: 06/01/2014 This study was interpreted with the benefit of Computerized Aided Detection (CAD). Breast Density: HETERO The breast parenchyma is heterogenously dense, which could reduce sensitivity of mammography. Breast parenchyma level C. FINDINGS: 2-D and 3-D tomosynthesis imaging was performed in CC and MLO projections. No new or enlarging breast densities are seen. Benign type calcifications are present. No suspicious microcalcifications have developed. IMPRESSION: Stable mammograms without evidence of malignancy. BI-RADS CATEGORY: 2 BENIGN FINDING(S) RECOMMENDED FOLLOW-UP: 12M 12 MONTH FOLLOW-UP PQRS compliance statement: Patient information was entered into a reminder system with a target due date for the next mammogram. Mammography is a sensitive method for finding small breast cancers, but it does not detect them all and is not a substitute for careful clinical examination. A negative mammogram does not negate a clinically suspicious finding and should not result in delay in biopsying a clinically suspicious abnormality. "Our facility is accredited by the [employer] Mammography Program."
== END | disposition home or self-care (01) ==
LOC: MAMMO 08:26
PROVIDERS: ATTEND Family Medicine
DX: N64.89 Other specified disorders of breast (principal)
CPT/HCPCS: 77063; 77067